=== PATIENT | female | born 1965 | race Caucasian/White ===

== ENCOUNTER 2020-05-13 15:13 | Inpatient (IN) | payer MEDICAID, SELFPAY ==
[2020-05-13] VITALS (7 sets, daily range): BP systolic 98–196; BP diastolic 46–110; PULSE 50–60; RESP 14–18; TEMP 36.6–37; O2SAT 96–97; BMI 28.3; BMI 24.5
--- NOTE | 2020-05-13 15:46 | ECG_ITS ---
Test Reason : CHEST PAIN Blood Pressure : / mmHG Vent. Rate : 052 BPM Atrial Rate : 052 BPM P-R Int : 146 ms QRS Dur : 096 ms QT Int : 456 ms P-R-T Axes : 064 -29 091 degrees QTc Int : 424 ms Sinus bradycardia Left axis deviation T wave abnormality, consider lateral ischemia Abnormal ECG When compared with ECG of 23-MAY-2014 16:37, Vent. rate has decreased BY 38 BPM T wave inversion now evident in Anterior leads Referred By: Jasiel Molina Electronically Signed By:GUNJAN TREJO MD
--- NOTE | 2020-05-13 17:16 | ED_ITS ---
HPI - Chest Pain General Chief Complaint: Chest Pain Stated Complaint: PT FEELS LIKE SHE IS HAVING A HEART ATTACK PER BLS Time Seen by Provider: 05/13/20 17:16 Source: patient Mode of arrival: EMS Limitations: no limitations History of Present Illness HPI narrative: Patient's history of peripheral vascular disease coronary artery disease status post CABG 1 vessel in 2009 on aspirin with recurrent chest pain off and on almost once a month comes here as she had pain on the left side of the chest since 05:00 after she woke up this time the pain was more severe than usual pain in the past patient took 3 nitros at home which is unusual for her with partial relief patient was given baby aspirin by EMS MD complaint: chest heaviness Pertinent past history: coronary artery disease and prior OK Onset (ago): hour(s) (12) Timing of current episode: constant Prior episodes: Yes Onset: during rest Pain location: left chest Pain radiation: right arm Severity: moderate Quality: tightness Relieving factors: nitroglycerin Exacerbating factors: nothing Treatment prior to arrival: aspirin and nitroglycerin Related Data Home Medications Medication Instructions Recorded Confirmed aripiprazole [Abilify] 10 mg PO DAILY 05/13/20 05/13/20 aspirin 81 mg PO DAILY 05/13/20 05/13/20 atorvastatin [Lipitor] 40 mg PO DAILY 05/13/20 05/13/20 cyclobenzaprine 10 mg PO TID PRN 05/13/20 05/13/20 docusate sodium 100 mg PO DAILY 05/13/20 05/13/20 hydrochlorothiazide 25 mg PO DAILY 05/13/20 05/13/20 lisinopril 40 mg PO DAILY 05/13/20 05/13/20 metformin 1,000 mg PO DAILY 05/13/20 05/13/20 metoprolol tartrate 100 mg PO DAILY 05/13/20 05/13/20 nitroglycerin 0.4 mg SUBLINGUAL Q5M PRN 05/13/20 05/13/20 oxycodone 5 mg PO Q6H PRN 05/13/20 05/13/20 zolpidem 10 mg PO BEDTIME PRN 05/13/20 05/13/20 Allergies Allergy/AdvReac Type Severity Reaction Status Date / Time ibuprofen [From Motrin] Allergy Stomach Verified 05/13/20 19:18 Upset Review of Systems Review of Systems: REVIEW OF SYSTEMS: Pertinent positives and negatives are stated above in the history. GEN: no fevers, chills, fatigue HEENT: no nasal congestion, sore throat, ear pain NEURO: no headache, dizziness, focal weakness PULM: no cough, shortness of breath CV: no palpitations, LE edema ABD: no abdominal pain, nausea, vomiting, diarrhea : no dysuria, urgency, frequency SKIN: no rash ROS otherwise negative x 10 PMFSH Past Medical History Medical History Diabetes Herniated cervical disc HTN (hypertension) Myocardial infarct Surgical History Hx of BKA S/P CABG x 1 Social History Social History Smoked in Last 30 Days: No Use of substances other than those prescribed or required for medical reasons: No Advance Directives: No Advance Directives Information Provided: No Physical Exam Vital Signs: Vital Signs: Last Vital Signs Temp 98.6 F 05/13/20 19:19 Pulse 52 05/13/20 19:27 Resp 52 H 05/13/20 20:25 BP 105/46 L 05/13/20 20:25 Pulse Ox 96 05/13/20 19:27 Body Mass Index 28.3 VITAL SIGNS: Reviewed. GENERAL: Well developed, well nourished, in no acute distress. HEAD: Normocephalic/atraumatic, EYES: PERRLA No pallor/icterus noted NOSE: Nares patent bilateral OROPHARYNX: Oral mucosa moist no oral lesions NECK: Supple, no adenopathy LUNGS: Normal breath sounds. No adventitious sounds or accessory muscle use CARDIOVASCULAR: Regular rate and rhythm without noted murmurs, no JVD or lower extremity edema. ABDOMEN: Soft, non-tender, non-distended with bowel sounds. No rigidity. No guarding. No palpable masses or hernias noted MUSCULOSKELETAL: No tenderness, deformities, EXTREMITIES: No cyanosis or edema left BKA. SKIN: no rashes, ulcerations, jaundice, pallor, or petechiae NEUROLOGIC: Alert and oriented x 3. Strength and sensation to light touch were grossly intact Course Course Course Narrative: patient with chest pain responded to 3 nitros with history of coronary artery disease status post CABG patient initial troponin was 73 repeat troponin is 1265 now denied any chest pain at this time repeat EKG still showing inferolateral ischemic changes patient denies any chest pain will admit patient started on heparin drip and nitro paste applied MDM - Chest Pain Lab Data Result diagrams: 05/13/20 18:07 05/13/20 18:07 Labs: Lab Results 05/13/20 05/13/20 05/13/20 Range/Units 18:06 18:07 18:07 WBC 13.1 H (4.8-10.8) X10*3/uL RBC 4.80 (4.20-5.50) X10*6/uL Hgb 14.6 (12.0-16.0) g/dl Hct 44.2 (37-47) % MCV 92.1 (80-98) fL MCH 30.4 (27.0-33.0) pg MCHC 33.0 (31.0-35.0) g/dl RDW 11.7 (11.0-16.0) % Plt Count 296 (160-400) X10*3/uL MPV 9.7 (9.4-12.3) fL Immature Gran % (Auto) 0.5 H (0.0-0.4) % Neut % (Auto) 81.7 H (45-73) % Lymph % (Auto) 13.5 L (20-40) % Bradley % (Auto) 3.4 (2-11) % Eos % (Auto) 0.5 (0-4) % Baso % (Auto) 0.4 (0-2) % Lymph # (Auto) 1.8 (1.2-4.9) X10*3/uL Bradley # (Auto) 0.5 (0.1-1.2) X10*3/uL Eos # (Auto) 0.1 (0.0-0.4) X10*3/uL Baso # (Auto) 0.1 (0.0-0.2) X10*3/uL Abs Immat Gran (auto) 0.06 H (0.00-0.03) X10*3/uL Absolute Neuts (auto) 10.7 H (2.0-8.3) X10*3/uL Absolute Nucleated RBC 0.000 (0.0-0.012) X10*3/uL Nucleated RBC % (auto) 0.0 (0.0-0.2) /100WBC PT 11.8 (10.8-13.0) SEC INR 1.0 (0.9-1.1) APTT 30.8 (24.1-38.0) SEC Sodium 141 (135-145) mmol/L Potassium 4.3 (3.3-5.1) mmol/l Chloride 104 (96-108) mmol/L Carbon Dioxide 29 (22-29) mmol/L Anion Gap 12 (12-20) BUN 19 H (9-16) mg/dL Creatinine 0.98 (0.5-1.4) mg/dL Estim Creat Clear Calc 64.3 Estimated GFR 59 Random Glucose 141 H (60-115) mg/dL Calcium 8.4 (8.4-10.2) mg/dL Troponin I High Sens (<3.5-17.0) ng/L B-Natriuretic Peptide (<100) pg/mL 05/13/20 05/13/20 Range/Units 18:07 20:26 WBC (4.8-10.8) X10*3/uL RBC (4.20-5.50) X10*6/uL Hgb (12.0-16.0) g/dl Hct (37-47) % MCV (80-98) fL MCH (27.0-33.0) pg MCHC (31.0-35.0) g/dl RDW (11.0-16.0) % Plt Count (160-400) X10*3/uL MPV (9.4-12.3) fL Immature Gran % (Auto) (0.0-0.4) % Neut % (Auto) (45-73) % Lymph % (Auto) (20-40) % Bradley % (Auto) (2-11) % Eos % (Auto) (0-4) % Baso % (Auto) (0-2) % Lymph # (Auto) (1.2-4.9) X10*3/uL Bradley # (Auto) (0.1-1.2) X10*3/uL Eos # (Auto) (0.0-0.4) X10*3/uL Baso # (Auto) (0.0-0.2) X10*3/uL Abs Immat Gran (auto) (0.00-0.03) X10*3/uL Absolute Neuts (auto) (2.0-8.3) X10*3/uL Absolute Nucleated RBC (0.0-0.012) X10*3/uL Nucleated RBC % (auto) (0.0-0.2) /100WBC PT (10.8-13.0) SEC INR (0.9-1.1) APTT (24.1-38.0) SEC Sodium (135-145) mmol/L Potassium (3.3-5.1) mmol/l Chloride (96-108) mmol/L Carbon Dioxide (22-29) mmol/L Anion Gap (12-20) BUN (9-16) mg/dL Creatinine (0.5-1.4) mg/dL Estim Creat Clear Calc Estimated GFR Random Glucose (60-115) mg/dL Calcium (8.4-10.2) mg/dL Troponin I High Sens 73.6 H 1265.1 H D (<3.5-17.0) ng/L B-Natriuretic Peptide 79 (<100) pg/mL ECG Data ECG #1: Attestation: I personally reviewed and interpreted this ECG as follows: ECG interpretation date: 05/13/20 Prior ECG tracings: available for review Interpretation: sinus bradycardia ventricular rate 52 beats per minute left axis deviation nonspecific ST T wave changes no ST elevation impression nonspecific inferolateral ischemic changes ECG #2: Attestation: I personally reviewed and interpreted this ECG as follows: ECG interpretation date: 05/13/20 ECG interpretation time: 21:39 Prior ECG tracings: available for review Interpretation: heart rate [address] T wave changes suggestive of inferolateral ischemia no significant change from the previous EKG except for the T wave is inverted in V4 V5 now Discharge Plan Discharge Prescriptions: No Action cyclobenzaprine 10 mg Tablet 10 mg PO TID PRN (Reason: Pain) RF: 0 atorvastatin [Lipitor] 40 mg Tablet 40 mg PO DAILY RF: 0 metformin 500 mg Tablet 1,000 mg PO DAILY RF: 0 metoprolol tartrate 100 mg Tablet 100 mg PO DAILY RF: 0 nitroglycerin 0.4 mg Tablet, Sublingual 0.4 mg SUBLINGUAL Q5M PRN (Reason: Angina) RF: 0 docusate sodium 100 mg Capsule 100 mg PO DAILY RF: 0 aspirin 81 mg Tablet 81 mg PO DAILY RF: 0 hydrochlorothiazide 25 mg Tablet 25 mg PO DAILY RF: 0 zolpidem 10 mg Tablet 10 mg PO BEDTIME PRN (Reason: Insomnia) RF: 0 lisinopril 40 mg Tablet 40 mg PO DAILY RF: 0 oxycodone 5 mg Tablet 5 mg PO Q6H PRN (Reason: Pain) RF: 0 aripiprazole [Abilify] 10 mg Tablet 10 mg PO DAILY RF: 0
--- NOTE | 2020-05-13 17:32 | XR_ITS ---
EXAMINATION: XR CHEST CLINICAL INFORMATION: Chest pain COMPARISON: 09/22/2016 TECHNIQUE: Frontal view of the chest was obtained. FINDINGS: Median sternotomy wires are intact. Cardiac silhouette is normal. Adequate expansion of the lungs. No focal consolidation. No pleural effusion or pneumothorax. No acute osseous abnormality. XR/XR chest 1V IMPRESSION: No acute disease within the chest.
--- NOTE | 2020-05-13 17:46 | PC.NURSE ---
ROOM WITH MONITOR OBTAINED. PT TO CXR AT THIS TIME.
--- NOTE | 2020-05-13 17:55 | PC.NURSE ---
pt just returned from [place]. requesting to use [facility]. pt set up on [facility]. able to self transfer to [facility] [facility].
[2020-05-13] MEDS: Nitroglycerin 2 % Oint 1 GM Packet 1 INCH TRANSDERMA (18:11)
[2020-05-13 18:13] LABS: MANUAL DIFF FLAG NO
[2020-05-13 18:16] LABS: Basophils Absolute Auto 0.1 X10*3/uL (0.0-0.2); Basophils Percent Auto 0.4 % (0-2); Eosinophils Absolute Auto 0.1 X10*3/uL (0.0-0.4); Eosinophils Percent Auto 0.5 % (0-4); Hematocrit 44.2 % (37-47); Hemoglobin 14.6 g/dl (12.0-16.0); Imm Gran Abs Auto 0.06 X10*3/uL (0.00-0.03); Imm Gran Pct Auto 0.5 % (0.0-0.4); Lymphocytes Absolute Auto 1.8 X10*3/uL (1.2-4.9); Lymphocytes Percent Auto 13.5 % (20-40); Mean Corpuscular Hemoglobin 30.4 pg (27.0-33.0); Mean Corpuscular Volume 92.1 fL (80-98); Mean Platelet Volume 9.7 fL (9.4-12.3); Monocytes Absolute Auto 0.5 X10*3/uL (0.1-1.2); Monocytes Percent Auto 3.4 % (2-11); Neutrophils Absolute Auto 10.7 X10*3/uL (2.0-8.3); Neutrophils Percent Auto 81.7 % (45-73); Platelet Count 296 X10*3/uL (160-400); Red Cell Distribution Width 11.7 % (11.0-16.0); White Blood Count 13.1 X10*3/uL (4.8-10.8)
[2020-05-13 18:22] LABS: Prothrombin Time 11.8 SEC (10.8-13.0)
[2020-05-13 18:25] LABS: Partial Thromboplastin Time 30.8 SEC (24.1-38.0)
[2020-05-13 18:38] LABS: Anion Gap 12 (12-20); Blood Urea Nitrogen 19 mg/dL (9-16); Calcium 8.4 mg/dL (8.4-10.2); Carbon Dioxide 29 mmol/L (22-29); Chloride 104 mmol/L (96-108); Creatinine Clr Calc Pharmacy 64.3; Estimated Glomerular Filt Rate 59; Glucose Random 141 mg/dL (60-115); Potassium 4.3 mmol/l (3.3-5.1); Sodium 141 mmol/L (135-145)
[2020-05-13 18:48] LABS: Troponin-I High Sensitivity 73.6 ng/L (<3.5-17.0)
[2020-05-13] MEDS: ondansetron HCL 4 MG/2 ML VIAL IVPUSH (19:19)
[2020-05-13] MEDS: Morphine Sulfate 4 MG/ML CARTRIDGE IVPUSH (19:19)
[2020-05-13] MEDS: oxyCODONE HCl Immed Release 5 MG TABLET 10 MG PO (20:49)
[2020-05-13 20:56] LABS: B Type Natriuretic Peptide 79 pg/mL (<100)
[2020-05-13 21:26] LABS: Troponin-I High Sensitivity 1265.1 ng/L (<3.5-17.0)
[2020-05-13] MEDS: Heparin Sodium,Porcine/1/2NS 25,000 UNIT/250 ML IV.SOLN 7.8 UNIT IVCONT (22:16)
[2020-05-13] MEDS: Heparin Sodium,Porcine 5,000 UNIT/ML VIAL 3900 UNIT IVPUSH (22:17)
[2020-05-13 22:31] LABS: Glucose, Whole Blood 152 mg/dL (60-115)
--- NOTE | 2020-05-13 23:23 | PM.IMHP ---
History of Present Illness Date of Service: 05/13/20 Chief Complaint: chest pain 54 y/o female who presented from home c/o chest pain. Patient has a significant hx of CAD s/p CABG in 2009, PAD and a stroke in 2017. Reports that has been having on and of chest pain for almost a month now, not every day, not related to exertion, today reports that symptoms are worse not improving with nitro therapy. On presentation to the ED pateint was hypertensive which improved without treatment to 141/52 mmHg, HR of 51. WBC of 13.1, troponin of 73.6 which worsen to 1265. CXR showed no acute abnormality. EKG showing sinus bradycardia, with T wave inversion on anterior leads. Cardiology consulted per ed who recommended aspirin, plavix and full dose anticoagulation with Heparin. Decision for admission given. Patient was seen and evaluated at the bedside, laying down in bed in no acute ditress. ROS as above otherwise negative. Physical exam positive for LLE amputation, Rigth flank mild tenderness on percussion. Otherwise rest of the exam unremarkable. PMHX: HTN, HLP, DM, CAD s/p [place] and CABG in 2009, Asthma, OA, Depression, Stroke in 2017 PSx: CABG, LLE amputation Toxic habits: Smoker, Social alcohol drinker, Marijuana use Review of Systems Constitutional: Constitutional: Reports as per HPI Cardiovascular: Cardiovascular: Reports chest pain at rest Musculoskeletal: Musculoskeletal: Reports other (right flank pain ) [facility] Medical History Diabetes Herniated cervical disc HTN (hypertension) Myocardial infarct Functional capacity: independent ambulation Surgical History Hx of BKA S/P CABG x 1 Social History Smoked in Last 30 Days: No Use of substances other than those prescribed or required for medical reasons: No Advance Directives: No Advance Directives Information Provided: No Meds Allergies Allergy/AdvReac Type Severity Reaction Status Date / Time ibuprofen [From Motrin] Allergy Stomach Verified 05/13/20 19:18 Upset Home Medications Medication Instructions Recorded Confirmed Type aripiprazole [Abilify] 10 mg PO DAILY 05/13/20 05/13/20 History aspirin 81 mg PO DAILY 05/13/20 05/13/20 History atorvastatin [Lipitor] 40 mg PO DAILY 05/13/20 05/13/20 History cyclobenzaprine 10 mg PO TID PRN 05/13/20 05/13/20 History docusate sodium 100 mg PO DAILY 05/13/20 05/13/20 History hydrochlorothiazide 25 mg PO DAILY 05/13/20 05/13/20 History lisinopril 40 mg PO DAILY 05/13/20 05/13/20 History metformin 1,000 mg PO DAILY 05/13/20 05/13/20 History metoprolol tartrate 100 mg PO DAILY 05/13/20 05/13/20 History nitroglycerin 0.4 mg SUBLINGUAL Q5M PRN 05/13/20 05/13/20 History oxycodone 5 mg PO Q6H PRN 05/13/20 05/13/20 History zolpidem 10 mg PO BEDTIME PRN 05/13/20 05/13/20 History Physical Exam Vital Signs and Narrative: Vital Signs: Last Vital Signs Temp 98.2 F 05/13/20 22:00 Pulse 51 05/13/20 22:00 Resp 15 05/13/20 22:00 BP 141/52 H 05/13/20 22:00 Pulse Ox 96 05/13/20 22:00 Body Mass Index 24.5 Const: General: cooperative and comfortable Orientation/consciousness: patient oriented x3 HENMT: Head: Yes normal to inspection Eyes: General: appearance normal, both eyes and all related structures Neck: Yes normal visual inspection Chest: Chest palpation & inspection: normal inspection of the chest Resp: Effort & Inspection: normal respiratory effort Cardio: Jugular venous distension: no JVD Rate: regular rate Rhythm: regular rhythm Heart sounds: S1 normal heart sound present and S2 normal heart sound present GI: Inspection: Yes normal to inspection Back/Spine/Pelvis: Thoracic/Lumbar Spine: other (right flank mild tenderness ) Skin: General skin exam: no rashes or lesions noted Neuro: General: patient oriented x3 Extrem: General: Yes normal to inspection Psych: Appearance: grossly normal Results Labs Labs: Laboratory Tests 05/13/20 05/13/20 05/13/20 18:06 18:07 18:07 WBC 13.1 H RBC 4.80 Hgb 14.6 Hct 44.2 MCV 92.1 MCH 30.4 MCHC 33.0 RDW 11.7 Plt Count 296 MPV 9.7 Immature Gran % (Auto) 0.5 H Neut % (Auto) 81.7 H Lymph % (Auto) 13.5 L Braxton % (Auto) 3.4 Eos % (Auto) 0.5 Baso % (Auto) 0.4 Lymph # (Auto) 1.8 Braxton # (Auto) 0.5 Eos # (Auto) 0.1 Baso # (Auto) 0.1 Abs Immat Gran (auto) 0.06 H Absolute Neuts (auto) 10.7 H Absolute Nucleated RBC 0.000 Nucleated RBC % (auto) 0.0 PT 11.8 INR 1.0 APTT 30.8 Sodium 141 Potassium 4.3 Chloride 104 Carbon Dioxide 29 Anion Gap 12 BUN 19 H Creatinine 0.98 Estim Creat Clear Calc 64.3 Estimated GFR 59 POC Glucose Random Glucose 141 H Calcium 8.4 Troponin I High Sens B-Natriuretic Peptide 05/13/20 05/13/20 05/13/20 18:07 20:26 22:27 WBC RBC Hgb Hct MCV MCH MCHC RDW Plt Count MPV Immature Gran % (Auto) Neut % (Auto) Lymph % (Auto) Braxton % (Auto) Eos % (Auto) Baso % (Auto) Lymph # (Auto) Braxton # (Auto) Eos # (Auto) Baso # (Auto) Abs Immat Gran (auto) Absolute Neuts (auto) Absolute Nucleated RBC Nucleated RBC % (auto) PT INR APTT Sodium Potassium Chloride Carbon Dioxide Anion Gap BUN Creatinine Estim Creat Clear Calc Estimated GFR POC Glucose 152 H Random Glucose Calcium Troponin I High Sens 73.6 H 1265.1 H D B-Natriuretic Peptide 79 Imaging Radiologist's Impressions: Impressions Chest X-Ray 05/13/20 17:32 IMPRESSION: No acute disease within the chest. Assessment and Plan (1) NSTEMI (non-ST elevated myocardial infarction): Status: Acute s/p ASA, Plavix and started on Heparin drip per ED Continue with aspirin home dose continue with plavix as ordered continue with Heparin drip as per protocol monitor H and H closely Chest pain free at present repeat EKG in 6 hrs from now trend troponin follow up 2d echo in the am follow up UA and Follow up US abdomen continue with nitroglycerin home dose Cardiology consult in the am (2) Hyperlipidemia: Status: Acute continue with statin home dose (3) HTN (hypertension): Status: Acute continue with HCTZ home dose continue with lisinopril home dose continue with metoprolol home dose (4) Diabetes: Status: Acute Insulin regimen as ordered (5) Depression: Status: Acute continue with aripiprazole home dose
[2020-05-13 23:39] LABS: SARS COV2 PCR INHOUSE NEGATIVE (Negative)
--- NOTE | 2020-05-14 | US_ITS ---
EXAMINATION: ABDOMINAL ULTRASOUND COMPLETE CLINICAL INFORMATION: Renal colic. Right-sided pain. COMPARISON: None. TECHNIQUE: Real-time imaging of the abdominal viscera. FINDINGS: PANCREAS: The visualized pancreatic head and body are normal in appearance. The pancreatic duct measures 2 mm. The remainder of the pancreas is obscured from visualization by the overlying bowel gas. ABDOMINAL AORTA: The proximal, middle, and distal aortic segments are normal in caliber. INFERIOR VENA CAVA: Visualized portions are normal. LIVER: Normal. The liver demonstrates normal size, contour and echogenicity. No focal lesion or intrahepatic biliary duct dilatation. GALLBLADDER: There are calculi within the gallbladder lumen. There is no wall thickening or pericholecystic fluid. COMMON BILE DUCT: Normal in caliber measuring 0.5 cm in diameter. RIGHT KIDNEY: Normal. No hydronephrosis. No renal calculi or focal parenchymal lesions. The kidney measures 10.1 cm in maximum dimension. LEFT KIDNEY: Normal. No hydronephrosis. No renal calculi or focal parenchymal lesions. The kidney measures 11.6 cm in maximum dimension. SPLEEN: Normal. The spleen measures 7.5 cm in maximum dimension. FREE FLUID: None. US/US abdomen complete IMPRESSION: Cholelithiasis without evidence of cholecystitis.
--- NOTE | 2020-05-14 | ECG_ITS ---
Test Reason : CHEST PAIN Blood Pressure : / mmHG Vent. Rate : 047 BPM Atrial Rate : 047 BPM P-R Int : 144 ms QRS Dur : 096 ms QT Int : 462 ms P-R-T Axes : 065 -45 085 degrees QTc Int : 408 ms Sinus bradycardia Left axis deviation Nonspecific T wave abnormality Abnormal ECG When compared with ECG of 13-MAY-2020 21:32, No significant change was found Referred By: Jasiel Molina Electronically Signed By:GUNJAN TREJO MD
[2020-05-14 02:05] VITALS: BP 152/70; PULSE 54; RESP 18; TEMP 37.1; O2SAT 94
[2020-05-14] MEDS: 0.9 % Sodium Chloride Flush 3 ML SYRINGE IVFLUSH ×2 (02:27→09:01)
[2020-05-14] MEDS: Clopidogrel Bisulfate 75 MG TABLET PO (02:31)
[2020-05-14 02:40] VITALS: BMI 24.6
[2020-05-14 03:16] VITALS: BP 142/63; PULSE 53; RESP 18; TEMP 37.1; O2SAT 93
[2020-05-14] MEDS: Morphine Sulfate 2 MG/ML CARTRIDGE 1 MG IVPUSH (03:33)
[2020-05-14] MEDS: Throat Lozenge, Medicated LOZENGE 1 LOZENGE MUCOUS MEM (03:34)
[2020-05-14] MEDS: guaiFENesin 100 MG/5 ML LIQUID PO (03:34)
[2020-05-14 04:40] LABS: MANUAL DIFF FLAG NO
[2020-05-14 04:50] LABS: Basophils Absolute Auto 0.1 X10*3/uL (0.0-0.2); Basophils Percent Auto 0.5 % (0-2); Eosinophils Absolute Auto 0.1 X10*3/uL (0.0-0.4); Eosinophils Percent Auto 1.1 % (0-4); Hematocrit 40.5 % (37-47); Hemoglobin 13.4 g/dl (12.0-16.0); Imm Gran Abs Auto 0.03 X10*3/uL (0.00-0.03); Imm Gran Pct Auto 0.3 % (0.0-0.4); Lymphocytes Absolute Auto 2.8 X10*3/uL (1.2-4.9); Mean Corpuscular HGB Conc 33.1 g/dl (31.0-35.0); Mean Corpuscular Hemoglobin 30.8 pg (27.0-33.0); Mean Corpuscular Volume 93.1 fL (80-98); Mean Platelet Volume 10.1 fL (9.4-12.3); Monocytes Absolute Auto 0.4 X10*3/uL (0.1-1.2); Monocytes Percent Auto 4.3 % (2-11); Neutrophils Absolute Auto 6.3 X10*3/uL (2.0-8.3); Neutrophils Percent Auto 64.8 % (45-73); Platelet Count 252 X10*3/uL (160-400); Red Blood Count 4.35 X10*6/uL (4.20-5.50); Red Cell Distribution Width 11.8 % (11.0-16.0); White Blood Count 9.7 X10*3/uL (4.8-10.8)
[2020-05-14 05:10] LABS: PTT Heparin Drip 56.9 SEC (53-77.9)
[2020-05-14 05:16] LABS: Anion Gap 14 (12-20); Blood Urea Nitrogen 16 mg/dL (9-16); Calcium 7.9 mg/dL (8.4-10.2); Carbon Dioxide 23 mmol/L (22-29); Chloride 105 mmol/L (96-108); Creatinine Clr Calc Pharmacy 83.1; Estimated Glomerular Filt Rate > 60; Glucose Random 136 mg/dL (60-115); Potassium 3.9 mmol/l (3.3-5.1); Sodium 138 mmol/L (135-145)
[2020-05-14 07:32] LABS: Glucose, Whole Blood 103 mg/dL (60-115)
[2020-05-14 07:35] VITALS: BP 151/67; PULSE 56; RESP 19; TEMP 36.9; O2SAT 95
[2020-05-14] MEDS: Cyclobenzaprine HCl 10 MG TABLET PO ×2 (09:00→13:31)
[2020-05-14 09:01] VITALS: BP 151/67; PULSE 65
[2020-05-14] MEDS: hydroCHLOROthiazide 25 MG TABLET PO (09:01)
[2020-05-14] MEDS: Aspirin 81 MG TAB.CHEW PO (09:01)
[2020-05-14] MEDS: Docusate Sodium 100 MG CAPSULE PO (09:01)
[2020-05-14] MEDS: ARIPiprazole 10 MG TABLET PO (09:01)
[2020-05-14] MEDS: Atorvastatin Calcium 40 MG TABLET PO (09:01)
[2020-05-14] MEDS: lisinopriL 40 MG TABLET PO (09:01)
[2020-05-14 09:03] VITALS: PULSE 50
--- NOTE | 2020-05-14 10:20 | CA_ITS ---
Transthoracic Echocardiogram Patient (Last, First, Middle): Zoya Nguyen, Gender: Female Date of : 1965 Age: 54 Procedure Date: 05/14/2020 Procedure Type: Transthoracic Echocardiogram Location: [facility] – [place] Height: 162.56 cm Weight: 64.86 kg BSA: 1.70 m2 Heart Rate: bpm BP: 142 / 63 mmHg Cooler Operator: DSRichardson Referring MD: Meron Lawrence MD Symptoms: NSTEMI Conclusions: - The left ventricular systolic function is hyperdynamic. The visually estimated ejection fraction is >70%. - The basal inferior segment is akinetic. - Normal right ventricular cavity size and systolic function. - No significant valvular or pericardial pathology. Findings Left Ventricle Normal left ventricular cavity size. There is mildly increased left ventricular wall thickness. The left ventricular systolic function is hyperdynamic. The visually estimated ejection fraction is >70%. There is evidence of regional wall motion abnormalities. Diastolic function is normal for age. Wall Motion Rest Echo Findings The basal inferior segment is akinetic. Right Ventricle Normal right ventricular cavity size and systolic function. Atria Both atria are normal in size. There is no evidence of interatrial shunt by color Doppler. Aortic Valve There is mild thickening of the aortic valve. There is no aortic valve stenosis. There is no aortic valve regurgitation. Mitral Valve Normal mitral valve structure and function. There is no mitral valve regurgitation. There is no mitral valve stenosis. Pulmonic Valve The pulmonic valve is likely normal. Tricuspid Valve Normal tricuspid valve structure and function. There is no tricuspid valve regurgitation. Tricuspid regurgitation envelope is inadequate for calculation of right ventricular systolic pressure. Normal right atrial pressure. Great Vessels All visible segments of the aorta are normal in size. The visualized portions of the pulmonary artery and branches are normal. Venous The inferior vena cava is normal in size and collapses greater than 50% with inspiration. Pericardium/Pleural There is no evidence of pericardial effusion. Prior Study Comparison Changes noted compared to prior study dated: 12/15/2001. Basal inferior wall is akinetic (compared with november 2016 echo at [facility]). Measurements 2D Linear Measurements IVSd: 0.97 0.6-0.9/0.6-1.0 cm LVIDd: 4.64 3.9-5.3/4.2-5.9 cm LVIDd Index: 2.73 2.4-3.2/2.2-3.1 cm/m2 LVIDs: 3.32 2.0-3.6 cm LVPWd: 0.99 0.7-1.1 cm Ao Root: 2.80 2.1-3.5 cm LA Diam: 3.00 2.7-3.8/3.0-4.0 cm LAIDs Index: 1.76 1.5-2.3 cm/m2 LV Mass: 194.70 67-162/88-224 g LV Mass Index: 114.53 43-95/49-115 g/m2 LVOT Diam: 1.90 3.0+(-)1.3 cm 2D Systolic Function EF 4C: 69.20 >55% Mitral Valve MV Pk E: 1.01 MV PK A: 0.81 MV Decel Time: 195.00 E/A: 1.30 E'Lateral: 9.38 E'Medial: 8.99 E/E' Med: 11.20 E/E' Lat: 10.80 PHT: 57.00 MVA PHT: 3.86 Decel [place]: 5.19 Aortic Valve AoV Pk Obed: 1.44 AoV Pk Grad: 8.00 LVOT LVOT Pk Obed: 1.39 LVOT Mn Obed: 0.85 LVOT VTI: 0.31 LVOT Pk Grad: 8.00 LVOT Mn Grad: 3.00 LVOT Diam: 1.90 LVOT Area: 2.84 Diastolic Function MV Pk E: 1.01 MV Pk A: 0.81 E/A: 1.30 E'Medial: 8.99 E/E' Med: 11.20 E' Laterial: 9.38 E/E' Lat: 10.80 Tricuspid Valve RA Press: 3.00 Great Vessels Aorta Ao Root-2D: 2.80 2.0-3.7 cm Updated in Other Vendor System with Status of Final Amrit Still MD electronically signed on 05/14/2020 12:33:49 PM with status of Final
--- NOTE | 2020-05-14 10:24 | MHC.CM.PN ---
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
[2020-05-14 10:50] LABS: PTT Heparin Drip 61.8 SEC (53-77.9)
[2020-05-14 11:20] VITALS: PULSE 57; RESP 18; TEMP 36.3; O2SAT 93
--- NOTE | 2020-05-14 11:24 | PM.CNCAR ---
History of Present Illness History of Present Illness Date of Consult: May 14, 2020 Requesting physician: Tyler Holloway Chief complaint: NSTEMI Narrative: 54-year-old female who is known to Dr. Minesh Matta. she has history of coronary artery disease with single-vessel bypass surgery with PERRY to LAD in 2009. She had cardiac catheterization for NSTEMI and ongoing chest discomfort 2016 when she had severe stenosis of the mid right coronary artery which was treated with PCI. She is now presenting with chest discomfort that happened yesterday for approximately 2 hours at rest. She ruled in for NSTEMI after that. Her blood pressure was elevated but improved after nitroglycerin. She was started on heparin drip and loaded with Plavix. She currently is pain-free. She is denying any drug abuse. She also has significant peripheral vascular disease and previous left below knee amputation. She also has Right femoral to tibial bypass. Last cardiac catheterization in 2016 showed mid LAD occlusion with the patent PERRY to LAD, chronic total occlusion of ramus intermedius, chronic occlusion of mid left circumflex artery, severe mid RCA stenosis with thrombus which was treated with resolute 3.5 x 22 drug-eluting stent. Review of Systems Review of Systems: Asymptomatic right now. She had chest heaviness and pressure yesterday 2 hours Yes all other systems are reviewed and are negative PMFSH Past Medical History Medical History Diabetes Herniated cervical disc HTN (hypertension) Myocardial infarct Functional capacity: independent ambulation Surgical History Surgical History Hx of BKA S/P CABG x 1 Social History Social History Household Members: None Housing: Apartment Do you presently have visiting nurse or other home services: Yes Smoking Status: Current some day smoker Tobacco Type: Cigarette Packs Per Day: 0.5 Cigarettes Per Day: 10.0 Smoked in Last 30 Days: Yes Patient Interested in Nicotine Replacement: No Use of substances other than those prescribed or required for medical reasons: Yes Substance Use Type: Marijuana Substance Use Frequency: Daily Last Used Substance: Hours (ago) Have you been hit, kicked, punched, or otherwise hurt by someone within the past year? If so, by whom?: No Do you feel safe in your current relationship?: Yes Is there a partner from a previous relationship who is making you feel unsafe now?: No Are you made to feel afraid or neglected: No Advance Directives: No Advance Directives Information Provided: No Do you have thoughts of harming others: None Do you have a plan to hurt others: No Plan Recently lost weight without trying: No service: No Meds Allergies Allergy/AdvReac Type Severity Reaction Status Date / Time ibuprofen [From Motrin] Allergy Stomach Verified 05/13/20 19:18 Upset Home Medications Medication Instructions Recorded Confirmed Type aripiprazole [Abilify] 10 mg PO DAILY 05/13/20 05/13/20 History aspirin 81 mg PO DAILY 05/13/20 05/13/20 History atorvastatin [Lipitor] 40 mg PO DAILY 05/13/20 05/13/20 History cyclobenzaprine 10 mg PO TID PRN 05/13/20 05/13/20 History docusate sodium 100 mg PO DAILY 05/13/20 05/13/20 History hydrochlorothiazide 25 mg PO DAILY 05/13/20 05/13/20 History lisinopril 40 mg PO DAILY 05/13/20 05/13/20 History metformin 1,000 mg PO DAILY 05/13/20 05/13/20 History metoprolol tartrate 100 mg PO DAILY 05/13/20 05/13/20 History nitroglycerin 0.4 mg SUBLINGUAL Q5M PRN 05/13/20 05/13/20 History oxycodone 5 mg PO Q6H PRN 05/13/20 05/13/20 History zolpidem 10 mg PO BEDTIME PRN 05/13/20 05/13/20 History Physical Exam Vital Signs: Vital Signs: Last Vital Signs Temp 97.3 F 05/14/20 11:20 Pulse 57 05/14/20 11:20 Resp 18 05/14/20 11:20 BP 151/67 H 05/14/20 09:01 Pulse Ox 93 05/14/20 11:20 Body Mass Index 24.6 GENERAL APPEARANCE: in no acute distress, well developed, well nourished. HEENT: unremarkable. HEAD: normocephalic, atraumatic. NECK/THYROID: no carotid bruit, no jugular venous distention. SKIN: no suspicious lesions, warm and dry. HEART: no murmurs, regular rate and rhythm, S1, S2 normal. LUNGS: few crackles at bases. ABDOMEN: normal, bowel sounds present, soft, nontender, nondistended. EXTREMITIES: no clubbing, cyanosis, or edema. left BKA. PERIPHERAL PULSES: equal. NEUROLOGIC: nonfocal, alert and oriented. PSYCH: mood/affect full range. Results Labs and Meds Result diagrams: 05/14/20 04:28 05/14/20 04:28 Lab results: Laboratory Results - last 24 hr 05/13/20 05/13/20 05/13/20 18:06 18:07 18:07 WBC 13.1 H RBC 4.80 Hgb 14.6 Hct 44.2 MCV 92.1 MCH 30.4 MCHC 33.0 RDW 11.7 Plt Count 296 MPV 9.7 Immature Gran % (Auto) 0.5 H Neut % (Auto) 81.7 H Lymph % (Auto) 13.5 L [place] % (Auto) 3.4 Eos % (Auto) 0.5 Baso % (Auto) 0.4 Lymph # (Auto) 1.8 [place] # (Auto) 0.5 Eos # (Auto) 0.1 Baso # (Auto) 0.1 Abs Immat Gran (auto) 0.06 H Absolute Neuts (auto) 10.7 H Absolute Nucleated RBC 0.000 Nucleated RBC % (auto) 0.0 PT 11.8 INR 1.0 APTT 30.8 PTT (Heparin Protocol) Sodium 141 Potassium 4.3 Chloride 104 Carbon Dioxide 29 Anion Gap 12 BUN 19 H Creatinine 0.98 Estim Creat Clear Calc 64.3 Estimated GFR 59 POC Glucose Random Glucose 141 H Calcium 8.4 Troponin I High Sens B-Natriuretic Peptide Coronavirus (PCR) 05/13/20 05/13/20 05/13/20 18:07 20:26 21:59 WBC RBC Hgb Hct MCV MCH MCHC RDW Plt Count MPV Immature Gran % (Auto) Neut % (Auto) Lymph % (Auto) [place] % (Auto) Eos % (Auto) Baso % (Auto) Lymph # (Auto) [place] # (Auto) Eos # (Auto) Baso # (Auto) Abs Immat Gran (auto) Absolute Neuts (auto) Absolute Nucleated RBC Nucleated RBC % (auto) PT INR APTT PTT (Heparin Protocol) Sodium Potassium Chloride Carbon Dioxide Anion Gap BUN Creatinine Estim Creat Clear Calc Estimated GFR POC Glucose Random Glucose Calcium Troponin I High Sens 73.6 H 1265.1 H D B-Natriuretic Peptide 79 Coronavirus (PCR) NEGATIVE 05/13/20 05/14/20 05/14/20 22:27 04:28 04:28 WBC 9.7 RBC 4.35 Hgb 13.4 Hct 40.5 MCV 93.1 MCH 30.8 MCHC 33.1 RDW 11.8 Plt Count 252 MPV 10.1 Immature Gran % (Auto) 0.3 Neut % (Auto) 64.8 Lymph % (Auto) 29.0 [place] % (Auto) 4.3 Eos % (Auto) 1.1 Baso % (Auto) 0.5 Lymph # (Auto) 2.8 [place] # (Auto) 0.4 Eos # (Auto) 0.1 Baso # (Auto) 0.1 Abs Immat Gran (auto) 0.03 Absolute Neuts (auto) 6.3 Absolute Nucleated RBC 0.000 Nucleated RBC % (auto) 0.0 PT INR APTT PTT (Heparin Protocol) Sodium 138 Potassium 3.9 Chloride 105 Carbon Dioxide 23 Anion Gap 14 BUN 16 Creatinine 0.66 Estim Creat Clear Calc 83.1 Estimated GFR > 60 POC Glucose 152 H Random Glucose 136 H Calcium 7.9 L Troponin I High Sens B-Natriuretic Peptide Coronavirus (PCR) 05/14/20 05/14/20 05/14/20 04:28 04:28 07:01 WBC RBC Hgb Hct MCV MCH MCHC RDW Plt Count MPV Immature Gran % (Auto) Neut % (Auto) Lymph % (Auto) [place] % (Auto) Eos % (Auto) Baso % (Auto) Lymph # (Auto) [place] # (Auto) Eos # (Auto) Baso # (Auto) Abs Immat Gran (auto) Absolute Neuts (auto) Absolute Nucleated RBC Nucleated RBC % (auto) PT INR APTT PTT (Heparin Protocol) 56.9 Sodium Potassium Chloride Carbon Dioxide Anion Gap BUN Creatinine Estim Creat Clear Calc Estimated GFR POC Glucose 103 Random Glucose Calcium Troponin I High Sens 3919.4 H D B-Natriuretic Peptide Coronavirus (PCR) 05/14/20 10:20 WBC RBC Hgb Hct MCV MCH MCHC RDW Plt Count MPV Immature Gran % (Auto) Neut % (Auto) Lymph % (Auto) [place] % (Auto) Eos % (Auto) Baso % (Auto) Lymph # (Auto) [place] # (Auto) Eos # (Auto) Baso # (Auto) Abs Immat Gran (auto) Absolute Neuts (auto) Absolute Nucleated RBC Nucleated RBC % (auto) PT INR APTT PTT (Heparin Protocol) 61.8 Sodium Potassium Chloride Carbon Dioxide Anion Gap BUN Creatinine Estim Creat Clear Calc Estimated GFR POC Glucose Random Glucose Calcium Troponin I High Sens B-Natriuretic Peptide Coronavirus (PCR) Assessment and Plan (1) NSTEMI (non-ST elevated myocardial infarction): Status: Acute (2) HTN (hypertension): Status: Acute 54-year-old female with background history of coronary artery disease with single-vessel bypass surgery with PERRY to LAD, hypertension, diabetes and PCI to right coronary artery [place] [address] José Luis Tejada. she is here with the elevated blood pressure and chest discomfort for approximately 2 hours yesterday. She ruled in for NSTEMI. She was started on heparin drip and was given a Plavix load. She is doing well since then. She has no active symptoms right now. ECG did not show any significant changes and has nonspecific changes right now. Will check an echocardiogram to assess LV for any wall motion abnormality. I think given her presentation and known significant coronary disease she will need repeat cardiac catheterization. I will transfer her to [facility] for further assessment. In the meantime continue the heparin drip. Continue the aspirin and Plavix 75 mg once a day. Thank you for allowing me to participate in the care of your patient. Please feel free to contact me if you have any questions.
[2020-05-14 11:52] LABS: Glucose, Whole Blood 83 mg/dL (60-115)
--- NOTE | 2020-05-14 12:21 | P.DS_ITS ---
DS: Providers Provider Date of admission: 05/13/20 23:22 Primary care physician: Bianka Alvarado MD Consults: 05/14/20 00:59 Consult to Cardiology Routine Consulting Provider: Amrit Still Reason for consultation: NSTEMI Has provider been notified: Yes DS: Diagnosis Discharge Diagnosis (1) NSTEMI (non-ST elevated myocardial infarction): Status: Acute (2) HTN (hypertension): Status: Acute DS: Summary Hospital Course Hospital Course: HPI from admission H&P: 54 y/o female who presented from home c/o chest pain. Patient has a significant hx of CAD s/p CABG in 2009, PAD and a stroke in 2017. Reports that has been having on and of chest pain for almost a month now, not every day, not related to exertion, today reports that symptoms are worse not improving with nitro the rapy. On presentation to the ED pateint was hypertensive which improved without treatment to 141/52 mmHg, HR of 51. WBC of 13.1, troponin of 73.6 which worsen to 1265. CXR showed no acute abnormality. EKG showing sinus bradycardia, with T wave inversion on anterior leads. Cardiology consulted per ed who recommended aspirin, plavix and full dose anticoagulation with Heparin. Decision for admission given. Patient was seen and evaluated at the bedside, laying down in bed in no acute ditress. ROS as above otherwise negative. Physical exam positive for LLE amputation, Rigth flank mild tenderness on percussion. Otherwise rest of the exam unremarkable. Hospital Course: Patient was started on iv heparin gtt, loaded with plavix 300mg, continue on statin/bb/aspirin. Her CP did resolve, but her HS trop-I was uptrending (73 -> 1265 -> 3919). She was seen by cardiology (Dr. Still) morning after admission who recommended 2d echo to assess for wall motion (formal reading pending) and subsequently recommended transfer to [facility] for cardiac catherization. She was informed of this and agreeable for transfer. Time Spent with Patient Time attestation: Total time spent providing and/or coordinating discharge services: Physical Exam Vital Signs: Vital Signs: Last Vital Signs Temp 97.3 F 05/14/20 11:20 Pulse 57 05/14/20 11:20 Resp 18 05/14/20 11:20 BP 151/67 H 05/14/20 09:01 Pulse Ox 93 05/14/20 11:20 Body Mass Index 24.6 gen - nad cvs - s1s2, mid sternal scar lungs - no distress abd - soft nt neuro - non focal DS: Data Data Completed and Pending Labs on day of discharge: his sodium 138 Potassium 3.9 Chloride 105 Bicarb 23 BUN 16 Creatinine 0.66 WBC 9.7 Hemoglobin 13.4 Hematocrit 40.5 Platelet 252 high sensitivity troponin - 73.6 -> to 1265 -> 3919 Imaging ultrasound: Radiologist's impression: IMPRESSION: Cholelithiasis without evidence of cholecystitis. Chest x-ray: Radiologist's impression: IMPRESSION: No acute disease within the chest. Discharge Plan Discharge Patient Disposition: [facility] Referrals: Bianka Alvarado MD [Primary Care Provider] - Discharge Medications: New clopidogrel 75 mg Tablet 75 mg PO DAILY Qty: 1 RF: 0 insulin lispro [Humalog U-100 Insulin] 100 unit/mL Solution See Protocol unit subcut QIDACHS 1 Days RF: 0 heparin(porcine) in 0.45% NaCl 25,000 unit/250 mL Parenteral Solution 25,000 unit continuous IV infusion .Q0M Qty: 1 RF: 0 Continued cyclobenzaprine 10 mg Tablet 10 mg PO TID PRN (Reason: Pain) RF: 0 atorvastatin [Lipitor] 40 mg Tablet 40 mg PO DAILY RF: 0 metoprolol tartrate 100 mg Tablet 100 mg PO DAILY RF: 0 nitroglycerin 0.4 mg Tablet, Sublingual 0.4 mg SUBLINGUAL Q5M PRN (Reason: Angina) RF: 0 docusate sodium 100 mg Capsule 100 mg PO DAILY RF: 0 aspirin 81 mg Tablet 81 mg PO DAILY RF: 0 hydrochlorothiazide 25 mg Tablet 25 mg PO DAILY RF: 0 zolpidem 10 mg Tablet 10 mg PO BEDTIME PRN (Reason: Insomnia) RF: 0 lisinopril 40 mg Tablet 40 mg PO DAILY RF: 0 oxycodone 5 mg Tablet 5 mg PO Q6H PRN (Reason: Pain) RF: 0 aripiprazole [Abilify] 10 mg Tablet 10 mg PO DAILY RF: 0 Held metformin 500 mg Tablet 1,000 mg PO DAILY RF: 0 Hold Instructions: Resume on 05/21/20. hold pending MD direction at [facility] Discharge Orders: Discharge Order (Routine); Ordered 05/14/20 Ordered By: Tyler Holloway Diet: other Activity on Discharge: bedrest Visit Report Forms: Patient Portal Discharge page Care Plan Goals: Get treatment for heart attack Health Concerns: Heart attack Plan of Treatment: Transfer to [facility] for cardiac cath. continue other medications in the mean time
--- NOTE | 2020-05-14 12:24 | MHC.CM.PN ---
pt being dcd to bs today
[2020-05-14] MEDS: Clopidogrel Bisulfate 300 MG TABLET PO (13:32)
[2020-05-14 14:48] LABS: Glucose, Whole Blood 91 mg/dL (60-115)
== END 2020-05-14 17:00 | disposition short-term general hospital (02) | DRG 190 ==
LOC: HO.ED 22:15 → HO.IMC 05-14 00:05
PROVIDERS: Admitting Provider Internal Medicine; Emergency Provider Internal Medicine; PCP Family Medicine; Visit Provider Family Medicine
DX: I21.4 Non-ST elevation (NSTEMI) myocardial infarction (principal); E11.9 Type 2 diabetes mellitus without complications; Z95.1 Presence of aortocoronary bypass graft; F32.9 Major depressive disorder, single episode, unspecified; I25.10 Atherosclerotic heart disease of native coronary artery without angina pectoris; F17.210 Nicotine dependence, cigarettes, uncomplicated; Z71.6 Tobacco abuse counseling; I10 Essential (primary) hypertension; Z89.512 Acquired absence of left leg below knee; Z20.828 Contact with and (suspected) exposure to other viral communicable diseases; Z88.6 Allergy status to analgesic agent; Z79.4 Long term (current) use of insulin; Z79.02 Long term (current) use of antithrombotics/antiplatelets; Z79.82 Long term (current) use of aspirin; Z79.891 Long term (current) use of opiate analgesic; Z79.899 Other long term (current) drug therapy
CPT/HCPCS: 36415; 71045; 76700; 80048; 82947; 83880; 84484; 85025; 85610; 85730; 93005; 93306; 96374; 96375; 99285; J2270; J2405; U0003

== ENCOUNTER 2022-01-20 10:05 | Outpatient (REF) | payer MEDICAID, SELFPAY ==
--- NOTE | ~2022-01-20 | MM_ITS ---
EXAMINATION: MM SCREENING DIGITAL BREAST TOMOSYNTHESIS, BILATERAL CLINICAL INFORMATION: Screening. Asymptomatic. The lifetime risk of breast cancer based on the Tyrer-Cuzick Model is 5%. COMPARISON: Mammography: 01/21/2018, 12/26/2016, 10/13/2015 TECHNIQUE: Digital breast tomosynthesis is performed in both the craniocaudal and mediolateral oblique views along with computer-aided detection (CAD). Synthesized 2D images are generated from the tomosynthesis. Technically challenging study requiring 2 technologists for positioning. Exam tailored to patient capabilities. FINDINGS: There are scattered areas of fibroglandular density (ACR BI-RADS breast composition Category b). There are no significant masses, abnormal calcifications, or other abnormalities. There are no significant changes from prior outside studies. No developing density. There are bilateral vascular calcifications. The axilla are unremarkable. MM/MM tomosynthesis screening BI IMPRESSION: -No mammographic evidence of malignancy. -Technically challenging exam, 2 technologists used for positioning. ASSESSMENT: BI-RADS 2: Benign RECOMMENDATION: Routine annual mammography screening. This patient's information was entered into a reminder system with a target due date for their next mammogram.
== END 2022-01-20 10:06 | disposition home or self-care (01) ==
LOC: HO.MAMMO 10:05
PROVIDERS: Visit Provider Family Medicine
DX: Z12.31 Encounter for screening mammogram for malignant neoplasm of breast (principal)
CPT/HCPCS: 77063; 77067

== ENCOUNTER 2022-12-25 11:03 | Outpatient (RCR) | payer MEDICAID, SELFPAY | END 2023-02-09 14:10 | disposition home or self-care (01) | LOC: HO.WCC 11:03 | PROVIDERS: PCP Family Medicine; Visit Provider Physician Assistant | DX: E11.622 Type 2 diabetes mellitus with other skin ulcer (principal); E11.51 Type 2 diabetes mellitus with diabetic peripheral angiopathy without gangrene; L97.512 Non-pressure chronic ulcer of other part of right foot with fat layer exposed; T87.89 Other complications of amputation stump; E11.40 Type 2 diabetes mellitus with diabetic neuropathy, unspecified; I10 Essential (primary) hypertension; F17.210 Nicotine dependence, cigarettes, uncomplicated; Z89.421 Acquired absence of other right toe(s); Z86.73 Personal history of transient ischemic attack (TIA), and cerebral infarction without residual deficits; Z79.2 Long term (current) use of antibiotics; Z95.1 Presence of aortocoronary bypass graft; Z95.0 Presence of cardiac pacemaker; Z89.612 Acquired absence of left leg above knee | CPT/HCPCS: 11042; 99213 ==

== ENCOUNTER 2023-03-04 21:50 | Emergency (ER) | payer MEDICAID, SELFPAY ==
--- NOTE | 2023-03-04 | ECG_ITS ---
Test Reason : WEAKNESS Blood Pressure : / mmHG Vent. Rate : 060 BPM Atrial Rate : 060 BPM P-R Int : 164 ms QRS Dur : 092 ms QT Int : 490 ms P-R-T Axes : 043 -15 -64 degrees QTc Int : 490 ms Atrial-paced rhythm T wave abnormality, consider anterior ischemia Prolonged QT Abnormal ECG When compared with ECG of 14-MAY-2020 08:41, Electronic atrial pacemaker has replaced Sinus rhythm Nonspecific T wave abnormality now evident in Inferior leads Inverted T waves have replaced nonspecific T wave abnormality in Anterior leads QT has lengthened Referred By: Generic ED Physician Electronically Signed By:JEROME RIVERA
--- NOTE | ~2023-03-04 | CT_ITS ---
EXAMINATION: CT ABDOMEN AND PELVIS WITHOUT CONTRAST CLINICAL INFORMATION: Left lower quadrant pain 2 weeks after angiogram COMPARISON: 05/18/2006 TECHNIQUE: Multidetector volumetric imaging was performed from the superior aspect of the liver through the pubic symphysis. Sagittal and coronal reformatted images were obtained on the technologist's workstation. This CT examination was performed using dose optimization techniques as appropriate, variously including the following: *Automated exposure control *Adjustment of mA and/or kV according to patient size (this includes techniques or standardized protocols for targeted exams where dose is matched to indication/reason for exam; i.e. extremities or head) *Use of iterative reconstruction technique DLP: 451 mGy-cm FINDINGS: LUNG BASES: The visualized lung bases are unremarkable. Partially visualized pericardial calcification. LIVER, GALLBLADDER, AND BILIARY TREE: The liver is mildly enlarged with homogeneous attenuation. No focal hepatic lesion or biliary ductal dilatation is identified on this noncontrast exam. Cholelithiasis is noted without appreciable gallbladder wall thickening or surrounding inflammation. PANCREAS: Unremarkable. SPLEEN: Unremarkable. ADRENAL GLANDS: There is a thickened appearance of both adrenal glands and could reflect hyperplasia, without focal nodularity. KIDNEYS AND URETERS: No hydronephrosis or obstructing calculus is seen bilaterally. Extensive bilateral hilar calcifications bilaterally, favored to at least partially be vascular. BLADDER: Mildly distended and grossly unremarkable. GASTROINTESTINAL TRACT: No evidence of bowel obstruction or significant wall thickening, though assessment of the colon some regions is limited due to luminal collapse. No free air is seen. ABDOMINAL WALL: No significant hernia is appreciated. LYMPH NODES: No lymphadenopathy is seen, though assessment is limited in the absence of intravenous contrast. VASCULAR: There is extensive vascular calcification. There is a mildly heterogeneous, predominantly mildly hypoattenuating collection in the left retroperitoneum measuring 7.7 x 7.0 cm in the axial plane and extending for approximately 12.6 cm in craniocaudal dimension. There is subtle layering hyperdense material posteriorly. Appearance is suspicious for retroperitoneal hematoma favored to at least partially be subacute, though an acute component cannot be excluded. Medial to the left common femoral vessels there is an additional mildly hypoattenuating 3.9 x 2.7 cm collection suspicious for hematoma. As the vascular structures are not fully assessed in the absence of intravenous contrast, the possibility of femoral artery pseudoaneurysm in this region cannot be excluded. PELVIC VISCERA: There is a coarsely calcified uterine fibroid. OSSEOUS STRUCTURES: Unremarkable. CT/CT abdomen pelvis wo IV con IMPRESSION: 1. Mildly heterogeneous collection in the left retroperitoneum suspicious for hematoma measuring 7.7 x 7.0 x 12.6 cm, favored to at least partially be subacute, though an acute component cannot be excluded. 2. Additional mildly hypoattenuating collection medial to the left common femoral vessels measuring 3.9 x 2.7 cm, also suspicious for hematoma. As the vascular structures are not fully assessed in the absence of intravenous contrast, the possibility of femoral artery pseudoaneurysm in this region cannot be excluded, and this could be further assessed with contrast-enhanced scan or vascular ultrasound. 3. Cholelithiasis. This critical result was discussed with Dr. Montana on 03/05/2023 3:27 AM, and it was ascertained that the content and urgency of the report was understood at the time of direct communication.
--- NOTE | ~2023-03-04 | CT_ITS ---
EXAMINATION: CT ABDOMEN AND PELVIS WITH CONTRAST CLINICAL INFORMATION: Rule out femoral pseudoaneurysm COMPARISON: Noncontrast CT from the same day TECHNIQUE: Multidetector volumetric images were obtained from the superior aspect of the liver through the pubic symphysis following administration 85 mL of Omnipaque 350 intravenous contrast. Sagittal and coronal reformatted images were obtained on the technologist's workstation. Oral contrast: No This CT examination was performed using dose optimization techniques as appropriate, variously including the following: *Automated exposure control *Adjustment of mA and/or kV according to patient size (this includes techniques or standardized protocols for targeted exams where dose is matched to indication/reason for exam; i.e. extremities or head) *Use of iterative reconstruction technique DLP: 480 mGy-cm FINDINGS: LUNG BASES: Calcification noted along the pericardium. LIVER, GALLBLADDER, AND BILIARY TREE: The liver is mildly enlarged with homogeneous attenuation. No focal hepatic lesion or biliary ductal dilatation is present. Cholelithiasis is noted. PANCREAS: Unremarkable. SPLEEN: Unremarkable. ADRENAL GLANDS: Thickened appearance of the adrenal glands is again noted. KIDNEYS AND URETERS: Bilateral nephrograms are symmetric. No hydronephrosis or obstructing calculus identified. Multiple bilateral renal hilar calcifications, at least some of which are favored to be vascular. BLADDER: Mildly distended and grossly unremarkable. GASTROINTESTINAL TRACT: Limited assessment for wall thickening in some segments of the colon due to luminal collapse. No evidence of bowel obstruction. The appendix is unremarkable. No free air is seen. ABDOMINAL WALL: No significant hernia is appreciated. LYMPH NODES: Normal. VASCULAR: There is extensive atherosclerotic plaque and calcification along the aorta, abdominal vessels, and bilateral iliac arteries. There is a right common iliac artery stent. The left common femoral artery in particular is not well assessed due to extensive calcification, and the vessel appears to be at least partially thrombosed distally, along with thrombosis of the visualized proximal left superficial femoral artery. Assessment for pseudoaneurysm is limited in this setting. The proximal right femoral vein appears distended with central hypoattenuation, most suspicious for deep venous thrombosis. Redemonstrated left retroperitoneal mass which is overall mildly hypoattenuating with some internal slightly hyperattenuating components. This measures up to approximately 13 cm in the axial plane and is suspicious for hematoma, unchanged from recent prior. Additional collection medial to the left common femoral vessels is again noted measuring up to approximately 4 cm consistent with additional hematoma. PELVIC VISCERA: Calcified uterine fibroid. OSSEOUS STRUCTURES: Degenerative changes are noted in the spine. CT/CT abdomen pelvis w IV con IMPRESSION: 1. Extensive atherosclerotic disease. The left common femoral artery in particular is not well assessed due to extensive calcification, and the vessel appears to be at least partially thrombosed distally, along with thrombosis of the visualized proximal left superficial femoral artery. Assessment for pseudoaneurysm is limited in this setting. 2. Distention of the proximal right femoral vein with central hypoattenuation, most suspicious for deep venous thrombosis. Evaluation with vascular ultrasound is recommended. 3. Redemonstrated left retroperitoneal collection suspicious for hematoma, unchanged from recent prior. Additional hematoma medial to the left common femoral vessels is also again noted. 4. Cholelithiasis. This critical result was discussed with Dr. Montana on 03/05/2023 5:07 AM, and it was ascertained that the content and urgency of the report was understood at the time of direct communication.
[2023-03-04 21:55] VITALS: BP 126/60; PULSE 72; O2SAT 97
[2023-03-04 22:08] VITALS: BP 99/44; PULSE 60; RESP 18; TEMP 36; O2SAT 98; BMI 21.5
[2023-03-04 22:30] LABS: MANUAL DIFF FLAG NO
[2023-03-04 22:41] LABS: Basophils Absolute Auto 0.1 X10*3/uL (0.0-0.2); Basophils Percent Auto 0.5 % (0-2); Eosinophils Absolute Auto 0.1 X10*3/uL (0.0-0.4); Eosinophils Percent Auto 1.1 % (0-4); Hematocrit 31.7 % (37.0-47.0); Hemoglobin 10.3 g/dl (12.0-16.0); Imm Gran Abs Auto 0.14 X10*3/uL (0.00-0.03); Imm Gran Pct Auto 1.5 % (0.0-0.4); Lymphocytes Absolute Auto 1.5 X10*3/uL (1.2-4.9); Mean Corpuscular HGB Conc 32.5 g/dl (31.0-35.0); Mean Corpuscular Hemoglobin 30.7 pg (27.0-33.0); Mean Corpuscular Volume 94.3 fL (80.0-98.0); Mean Platelet Volume 9.3 fL (9.4-12.3); Monocytes Absolute Auto 0.6 X10*3/uL (0.1-1.2); Neutrophils Absolute Auto 7.3 x10*3/uL (2.0-8.3); Neutrophils Percent Auto 75.9 % (45-73); Platelet Count 325 X10*3/uL (160-400); Red Blood Count 3.36 X10*6/uL (4.20-5.50); Red Cell Distribution Width 13.6 % (11.0-16.0); White Blood Count 9.7 X10*3/uL (4.8-10.8)
[2023-03-04 22:44] LABS: COVID-19 Test Negative (Negative); IDNOW Serial# 6674DD1D
[2023-03-04 22:51] LABS: Alanine Aminotransferase 8 U/L (0-31); Albumin Level 3.4 g/dL (3.5-5.0); Alkaline Phosphatase 70 U/L (39-117); Anion Gap 10 (12-20); Aspartate Amino Transferase 12 U/L (5-31); Bilirubin Total 0.5 mg/dL (0.0-1.0); Blood Urea Nitrogen 18 mg/dL (9-16); Calcium 8.8 mg/dL (8.4-10.2); Carbon Dioxide 28 mmol/L (22-29); Chloride 105 mmol/L (96-108); Creatinine Clr Calc Pharmacy 60.1; Estimated Glomerular Filt Rate > 60; Glucose Random 152 mg/dL (60-115); Lipase 31 U/L (8-78); Potassium 4.3 mmol/L (3.3-5.1); Sodium 139 mmol/L (135-145); Total Protein 6.4 g/dL (6.5-8.0)
[2023-03-04 23:03] LABS: Troponin-I High Sensitivity < 2.7 ng/L (<3.5-17.0)
[2023-03-04 23:34] LABS: Influenza A PCR NEGATIVE (Negative); Influenza B PCR NEGATIVE (Negative); Resp Syncy Virus RNA Qual PCR NEGATIVE (Negative); SARS COV2 PCR INHOUSE NEGATIVE (Negative)
--- NOTE | 2023-03-05 02:29 | ED.ABDPAIN ---
HPI - Abdominal Pain General Chief Complaint: Abdominal Pain Stated Complaint: NAUSEA VOMITING Time Seen by Provider: 03/05/23 02:24 Source: patient Mode of arrival: ambulatory Limitations: no limitations History of Present Illness HPI narrative: Patient comes to the emergency room complaining of left lower quadrant pain that started 2 weeks ago. Patient states that 2 weeks ago she had a left-sided angiogram. Since then, patient has been having pain in that area. Patient complaining of nausea vomiting, no diarrhea, no fever chills, no UTI symptoms. Related Data Home Medications Medication Instructions Recorded Confirmed aripiprazole 10 mg tablet (Abilify) 10 mg PO DAILY 05/13/20 05/13/20 aspirin 81 mg tablet 81 mg PO DAILY 05/13/20 05/13/20 atorvastatin 40 mg tablet (Lipitor) 40 mg PO DAILY 05/13/20 05/13/20 cyclobenzaprine 10 mg tablet 10 mg PO TID PRN Pain 05/13/20 05/13/20 docusate sodium 100 mg capsule 100 mg PO DAILY 05/13/20 05/13/20 hydrochlorothiazide 25 mg tablet 25 mg PO DAILY 05/13/20 05/13/20 lisinopril 40 mg tablet 40 mg PO DAILY 05/13/20 05/13/20 metformin 500 mg tablet 1,000 mg PO DAILY 05/13/20 05/13/20 metoprolol tartrate 100 mg tablet 100 mg PO DAILY 05/13/20 05/13/20 nitroglycerin 0.4 mg sublingual 0.4 mg sublingual Q5M PRN Angina 05/13/20 05/13/20 tablet oxycodone 5 mg tablet 5 mg PO Q6H PRN Pain 05/13/20 05/13/20 zolpidem 10 mg tablet 10 mg PO BEDTIME PRN Insomnia 05/13/20 05/13/20 Previous Rx's Medication Instructions Recorded clopidogrel 75 mg tablet 75 mg PO DAILY #1 tab 05/14/20 heparin (porcine) 25,000 unit/250 25,000 unit (250 mL) continuous IV 05/14/20 mL in 0.45 % sodium chloride IV infusion .Q0M #1 mL soln insulin lispro 100 unit/mL See Protocol subcut QIDACHS 1 day 05/14/20 subcutaneous solution (Humalog U-100 Insulin) Allergies Allergy/AdvReac Type Severity Reaction Status Date / Time ibuprofen [From Motrin] Allergy Stomach Verified 03/04/23 22:07 Upset Review of Systems Review of Systems Constitutional : No Weight loss, No Fever, No Chills, No Night Sweats, No Fatigue, No Malaise ENT/Mouth : No Hearing loss, No Ear Pain, No Nasal Congestion, No Sinus Pain, No Hoarseness, No sore throat, No Rhinorrhea, No Swallowing Difficulty Eyes: No Eye Pain, No Swelling, No Redness, No Foreign Body, No Discharge, No Vision Changes Cardiovascular : No Chest Pain, No SOB, No Dyspnea on Exertion, No Orthopnea, No Edema, No Palpitations Respiratory : No Cough, No Sputum, No Wheezing, No Smoke Exposure, No Dyspnea Gastrointestinal : Complaining of nausea and vomiting, No Diarrhea, No Constipation, complaining of left lower quadrant pain for 2 weeks Genitourinary : no irregular bleeding, No Dysuria, No Urinary Frequency, No Hematuria, No Urinary Incontinence, No Urgency, No Flank Pain, No Urinary Flow Changes, No Hesitancy Musculoskeletal : No joint pain, No Myalgias, No Joint Swelling Skin : No Skin Lesions, No rash Neuro : No Weakness, No Numbness, No Paresthesias, No Loss of Consciousness, No Dizziness, No Headache Psych : No Anxiety/Panic, No Depression, No SI/HI/AH/VH, No Social Issues, Heme/Lymph: No Bruising, No Bleeding,No Lymphadenopathy Endocrine : No Polyuria, No Polydipsia, No Temperature Intolerance PMFSH Past Medical History Medical History Diabetes Herniated cervical disc HTN (hypertension) Myocardial infarct Surgical History H/O cervical discectomy H/O elbow surgery Hx of BKA S/P CABG x 1 Social History Social History Household Members: None Housing: Apartment Do you presently have visiting nurse or other home services: Yes Cigarette Packs Per Day: 0.5 Cigarettes Per Day: 10.0 Substance Use Type: Marijuana Advance Directives: No Advance Directives Information Provided: Yes service: No Physical Exam ED Vital Signs: Vital Signs - 24 hr 03/04/23 22:08 03/05/23 02:31 03/05/23 04:07 Temperature 96.8 F 98.0 F 97.7 F Pulse Rate 60 60 60 Respiratory Rate 18 18 17 Blood Pressure 99/44 L 141/48 H 118/45 L Pulse Oximetry 98 100 96 Oxygen Delivery Method Room Air Room Air Room Air 03/05/23 05:48 Temperature 97.7 F Pulse Rate 60 Respiratory Rate 15 Blood Pressure 113/48 L Pulse Oximetry 100 Oxygen Delivery Method Room Air BMI result Body Mass Index 21.5 Const Other: Appearance: Alert. Oriented X3. No acute distress. Eyes: Pupils equal, round and reactive to light. ENT: Pharynx normal. Neck: Normal inspection. Neck supple. No lymph nodes noted. No crepitus CVS: Normal heart rate and rhythm. Pulses normal. Normal S1 and S2 Respiratory: No respiratory distress. Breath sounds normal. No Wheezing. No rales Abdomen: Soft , tenderness to palpation in left lower quadrant, incision of angiogram looks clean, no cellulitis, no signs of an abscess Skin: Skin warm and dry. Normal skin color. Normal skin turgor. Extremities: Left BKA Neuro: Oriented X 3. No motor deficit. No sensory deficit. Moving all extremities. No slurred speech. CN 2 through 12 grossly intact Psych: calm, cooperative, normal affect Course Course Course Narrative: -all of patient's labs and imaging pending Medical Decision Making Medical Decision Making MDM Narrative: -my interpretation EKG: Atrial paced rhythm, heart rate 60, no ST segment depression or elevation, T-wave inversion in lead V3 V4 previously seen on EKG in 2019. QTC 490. Patient 2 weeks status post angiogram -patient refused to have her CT scan done with contrast, CT scan done without contrast -I received a phone call from [facility], I discussed the CT scan with Dr. Bingham, patient have a retroperitoneal hematoma, unclear if it is acute versus subacute. Also femoral artery pseudoaneurysm cannot be excluded. I discussed this with the patient, patient is now agreeable to have the CT scan repeated with contrast -CT scan with contrast shows a left retroperitoneal mass, approximately 13 cm hematoma. Patient will likely need to be transferred to [facility]. -I discussed the patient with Dr. Rosales who will be taking over patient's care. -patient's vitals stable, blood pressure 113/48, pulse 60 Differential Diagnosis Differential Diagnoses: The differential diagnosis associated with the presentation includes (Diverticulosis, diverticulitis, retroperitoneal hematoma, femoral aneurysm/pseudoaneurysm) Admission/Observation Consideration of admission/observation: Escalation of care including admission/observation considered (Admission versus transfer is being considered, also having left lower quadrant pain at site of a recent angiogram) Lab Data MDM Lab Attestation statement: I reviewed the patient's lab results. 03/04/23 22:25 03/04/23 22:26 Labs: Lab Results 03/04/23 03/04/23 03/04/23 Range/Units 22:23 22:25 22:26 WBC 9.7 (4.8-10.8) X10*3/uL RBC 3.36 L (4.20-5.50) X10*6/uL Hgb 10.3 L (12.0-16.0) g/dl Hct 31.7 L (37.0-47.0) % MCV 94.3 (80.0-98.0) fL MCH 30.7 (27.0-33.0) pg MCHC 32.5 (31.0-35.0) g/dl RDW 13.6 (11.0-16.0) % Plt Count 325 (160-400) X10*3/uL MPV 9.3 L (9.4-12.3) fL Immature Gran % (Auto) 1.5 H (0.0-0.4) % Neut % (Auto) 75.9 H (45-73) % Lymph % (Auto) 15.0 L (20-40) % [place] % (Auto) 6.0 (2-11) % Eos % (Auto) 1.1 (0-4) % Baso % (Auto) 0.5 (0-2) % Lymph # (Auto) 1.5 (1.2-4.9) X10*3/uL [place] # (Auto) 0.6 (0.1-1.2) X10*3/uL Eos # (Auto) 0.1 (0.0-0.4) X10*3/uL Baso # (Auto) 0.1 (0.0-0.2) X10*3/uL Abs Immat Gran (auto) 0.14 H (0.00-0.03) X10*3/uL Absolute Neuts (auto) 7.3 (2.0-8.3) x10*3/uL Absolute Nucleated RBC 0.000 (0.0-0.012) X10*3/uL Nucleated RBC % (auto) 0.0 (0.0-0.2) /100WBC Sodium 139 (135-145) mmol/L Potassium 4.3 (3.3-5.1) mmol/L Chloride 105 (96-108) mmol/L Carbon Dioxide 28 (22-29) mmol/L Anion Gap 10 L (12-20) BUN 18 H (9-16) mg/dL Creatinine 0.88 (0.5-1.4) mg/dL Estim Creat Clear Calc 60.1 Estimated GFR > 60 Random Glucose 152 H (60-115) mg/dL Calcium 8.8 D (8.4-10.2) mg/dL Total Bilirubin 0.5 (0.0-1.0) mg/dL AST 12 (5-31) U/L ALT 8 (0-31) U/L Alkaline Phosphatase 70 (39-117) U/L Troponin I High Sens (<3.5-17.0) ng/L Total Protein 6.4 L (6.5-8.0) g/dL Albumin 3.4 L (3.5-5.0) g/dL Lipase 31 (8-78) U/L COVID-19 (CRISTY) (Negative) COVID-19 Clin Com Influenza Type A (DESIREE) Influenza Type A (PCR) NEGATIVE (Negative) Influenza Type B (DESIREE) Influenza Type B (PCR) NEGATIVE (Negative) Influenza A & B Note RSV RNA Qual (PCR) NEGATIVE (Negative) SARS-CoV-2 RNA (RT-PCR) NEGATIVE (Negative) 03/04/23 03/04/23 03/04/23 Range/Units 22:26 22:26 22:26 WBC (4.8-10.8) X10*3/uL RBC (4.20-5.50) X10*6/uL Hgb (12.0-16.0) g/dl Hct (37.0-47.0) % MCV (80.0-98.0) fL MCH (27.0-33.0) pg MCHC (31.0-35.0) g/dl RDW (11.0-16.0) % Plt Count (160-400) X10*3/uL MPV (9.4-12.3) fL Immature Gran % (Auto) (0.0-0.4) % Neut % (Auto) (45-73) % Lymph % (Auto) (20-40) % [place] % (Auto) (2-11) % Eos % (Auto) (0-4) % Baso % (Auto) (0-2) % Lymph # (Auto) (1.2-4.9) X10*3/uL [place] # (Auto) (0.1-1.2) X10*3/uL Eos # (Auto) (0.0-0.4) X10*3/uL Baso # (Auto) (0.0-0.2) X10*3/uL Abs Immat Gran (auto) (0.00-0.03) X10*3/uL Absolute Neuts (auto) (2.0-8.3) x10*3/uL Absolute Nucleated RBC (0.0-0.012) X10*3/uL Nucleated RBC % (auto) (0.0-0.2) /100WBC Sodium (135-145) mmol/L Potassium (3.3-5.1) mmol/L Chloride (96-108) mmol/L Carbon Dioxide (22-29) mmol/L Anion Gap (12-20) BUN (9-16) mg/dL Creatinine (0.5-1.4) mg/dL Estim Creat Clear Calc Estimated GFR Random Glucose (60-115) mg/dL Calcium (8.4-10.2) mg/dL Total Bilirubin (0.0-1.0) mg/dL AST (5-31) U/L ALT (0-31) U/L Alkaline Phosphatase (39-117) U/L Troponin I High Sens < 2.7 (<3.5-17.0) ng/L Total Protein (6.5-8.0) g/dL Albumin (3.5-5.0) g/dL Lipase (8-78) U/L COVID-19 (CRISTY) Negative (Negative) COVID-19 Clin Com See Note Influenza Type A (DESIREE) Cancelled Influenza Type A (PCR) (Negative) Influenza Type B (DESIREE) Cancelled Influenza Type B (PCR) (Negative) Influenza A & B Note Cancelled RSV RNA Qual (PCR) (Negative) SARS-CoV-2 RNA (RT-PCR) (Negative) Radiology Impression Discussion of test interpretation with radiology: I have reviewed the radiologist's reading. Radiologist Impression: FINDINGS: LUNG BASES: Calcification noted along the pericardium.? LIVER, GALLBLADDER, AND BILIARY TREE: The liver is mildly enlarged with homogeneous attenuation. No focal hepatic lesion or biliary ductal dilatation is present. Cholelithiasis is noted.? PANCREAS: Unremarkable.? SPLEEN: Unremarkable.? ADRENAL GLANDS: Thickened appearance of the adrenal glands is again noted.? KIDNEYS AND URETERS: Bilateral nephrograms are symmetric. No hydronephrosis or obstructing calculus identified. Multiple bilateral renal hilar calcifications, at least some of which are favored to be vascular. BLADDER: Mildly distended and grossly unremarkable.? GASTROINTESTINAL TRACT: Limited assessment for wall thickening in some segments of the colon due to luminal collapse. No evidence of bowel obstruction. The appendix is unremarkable. No free air is seen.? ABDOMINAL WALL: No significant hernia is appreciated.? LYMPH NODES: Normal. VASCULAR: There is extensive atherosclerotic plaque and calcification along the aorta, abdominal vessels, and bilateral iliac arteries. There is a right common iliac artery stent. The left common femoral artery in particular is not well assessed due to extensive calcification, and the vessel appears to be at least partially thrombosed distally, along with thrombosis of the visualized proximal left superficial femoral artery. Assessment for pseudoaneurysm is limited in this setting. The proximal right femoral vein appears distended with central hypoattenuation, most suspicious for deep venous thrombosis. Redemonstrated left retroperitoneal mass which is overall mildly hypoattenuating with some internal slightly hyperattenuating components. This measures up to approximately 13 cm in the axial plane and is suspicious for hematoma, unchanged from recent prior. Additional collection medial to the left common femoral vessels is again noted measuring up to approximately 4 cm consistent with additional hematoma. PELVIC VISCERA: Calcified uterine fibroid.? OSSEOUS STRUCTURES: Degenerative changes are noted in the spine.? CT/CT abdomen pelvis w IV con IMPRESSION: 1.? Extensive atherosclerotic disease. The left common femoral artery in particular is not well assessed due to extensive calcification, and the vessel appears to be at least partially thrombosed distally, along with thrombosis of the visualized proximal left superficial femoral artery. Assessment for pseudoaneurysm is limited in this setting. 2.? Distention of the proximal right femoral vein with central hypoattenuation, most suspicious for deep venous thrombosis. Evaluation with vascular ultrasound is recommended. 3.? Redemonstrated left retroperitoneal collection suspicious for hematoma, unchanged from recent prior. Additional hematoma medial to the left common femoral vessels is also again noted. 4.? Cholelithiasis. Medications Administered Discontinued Medications Generic Name Dose Route Start Last Admin Trade Name Freq PRN Reason Stop Dose Admin Iohexol 85 ml 03/05/23 04:16 03/05/23 04:18 Iohexol 350 Mg/Ml 100 Ml Infus..Btl IV 03/05/23 04:17 85 ml ONCE ONE Administration Ondansetron HCl 4 mg 03/05/23 02:28 03/05/23 03:11 Ondansetron Odt 4 Mg Tab.Rapdis TRANSLINGU 03/05/23 02:29 4 mg ONCE ONE Administration Critical Care Time Critical Care Time Critical Care Time: Yes Total Critical Care Time: 60 Attestation: I have personally provided critical care time. Time includes review of lab data, radiology results, discussion with consultants, and monitoring for potential decompensation. Intervention performed as documented. Discharge Plan Discharge Clinical Impression: Retroperitoneal hematoma Patient Disposition: [facility] Transfer Details: [facility] Prescriptions: No Action cyclobenzaprine 10 mg Tablet 10 mg PO TID PRN (Reason: Pain) atorvastatin [Lipitor] 40 mg Tablet 40 mg PO DAILY metformin 500 mg Tablet 1,000 mg PO DAILY Hold Instructions: Resume on 05/21/20. hold pending MD direction at [facility] [place] metoprolol tartrate 100 mg Tablet 100 mg PO DAILY nitroglycerin 0.4 mg Tablet, Sublingual 0.4 mg SUBLINGUAL Q5M PRN (Reason: Angina) docusate sodium 100 mg Capsule 100 mg PO DAILY aspirin 81 mg Tablet 81 mg PO DAILY hydrochlorothiazide 25 mg Tablet 25 mg PO DAILY zolpidem 10 mg Tablet 10 mg PO BEDTIME PRN (Reason: Insomnia) lisinopril 40 mg Tablet 40 mg PO DAILY oxycodone 5 mg Tablet 5 mg PO Q6H PRN (Reason: Pain) aripiprazole [Abilify] 10 mg Tablet 10 mg PO DAILY clopidogrel 75 mg Tablet 75 mg PO DAILY Qty: 1 0RF insulin lispro [Humalog U-100 Insulin] 100 unit/mL Solution See Protocol subcut QIDACHS 1 Days 0RF Protocol: Insulin Normal Sensitivity 1st 24 hrs Less than or equal to 110 ---- Give (units): 0 111 to 150 Give (units): 0 151 to 200 Give (units): 2 201 to 250 Give (units): 4 251 to 300 Give (units): 6 301 to 350 Give (units): 8 Greater than 350 Give (units): 10 Call MD if Blood Glucose > : 350 heparin(porcine) in 0.45% NaCl 25,000 unit/250 mL Parenteral Solution 25,000 unit continuous IV infusion .Q0M Qty: 1 0RF
[2023-03-05 02:31] VITALS: BP 141/48; PULSE 60; RESP 18; TEMP 36.7; O2SAT 100
[2023-03-05] MEDS: Ondansetron ODT 4 MG TAB.RAPDIS TRANSLINGU (03:11)
[2023-03-05 04:07] VITALS: BP 118/45; PULSE 60; RESP 17; TEMP 36.5; O2SAT 96
[2023-03-05] MEDS: iohexoL 350 MG/ML 100 ML INFUS..BTL 85 ML IV (04:18)
[2023-03-05 05:48] VITALS: BP 113/48; PULSE 60; RESP 15; TEMP 36.5; O2SAT 100
--- NOTE | 2023-03-05 07:20 | PC.NURSE ---
care assumed for this patient. pt found sitting up in bed- aox3 apeaking in full clear sentences. pt reports she was recently cleaned d.t being incontinent of urine. awaiting ultrasound s/p ct results. requesting coffee but educated to hold off. denied having any questions at this time.
[2023-03-05 08:11] VITALS: BP 125/63; PULSE 60; RESP 14; TEMP 36.6; O2SAT 97
--- NOTE | 2023-03-05 08:16 | PC.NURSE ---
attempt to call for report. david chicas to call back
--- NOTE | 2023-03-05 08:44 | PC.NURSE ---
report given to esteban chicas at [facility]
== END 2023-03-05 09:29 | disposition short-term general hospital (02) ==
PROVIDERS: Emergency Medicine; Emergency Provider Emergency Medicine
DX: R11.2 Nausea with vomiting, unspecified (principal); R10.32 Left lower quadrant pain; R94.31 Abnormal electrocardiogram [ECG] [EKG]; F17.210 Nicotine dependence, cigarettes, uncomplicated; Z71.6 Tobacco abuse counseling; Z20.822 Contact with and (suspected) exposure to COVID-19; Z20.828 Contact with and (suspected) exposure to other viral communicable diseases; Z79.899 Other long term (current) drug therapy
CPT/HCPCS: 0241U; 74176; 74177; 80053; 83690; 84484; 85025; 87502; 87635; 93005; 99285; Q9967

== ENCOUNTER 2023-03-10 21:19 | Observation (INO) | payer MEDICAID, SELFPAY ==
--- NOTE | ~2023-03-10 | XR_ITS ---
EXAMINATION: XR CHEST CLINICAL INFORMATION: Chest pain COMPARISON: Chest x-ray May 13, 2020 TECHNIQUE: 2 views of the chest were obtained. FINDINGS: Status post median sternotomy. Pacemaker leads in right atrium and right ventricle. Cardiac mediastinal contours normal. Heart size normal. No pulmonary vascular congestion. Lungs are normally aerated. There is no pleural effusion or pneumothorax. XR/XR chest 2V IMPRESSION: No acute abnormality of the chest.
--- NOTE | 2023-03-10 21:21 | ECG_ITS ---
Test Reason : CP Blood Pressure : / mmHG Vent. Rate : 079 BPM Atrial Rate : 079 BPM P-R Int : 158 ms QRS Dur : 094 ms QT Int : 354 ms P-R-T Axes : 066 003 130 degrees QTc Int : 405 ms Sinus rhythm with marked sinus arrhythmia with occasional Atrial-paced rhythm Possible Left atrial enlargement ST & T wave abnormality, consider lateral ischemia Abnormal ECG When compared with ECG of 04-MAR-2023 22:18, Sinus rhythm has replaced Electronic atrial pacemaker ST now depressed in Lateral leads QT has shortened Referred By: Generic ED Physician Electronically Signed By:JEROME RIVERA
[2023-03-10 21:25] VITALS: BP 194/84; PULSE 77; RESP 18; TEMP 36.8; O2SAT 100; BMI 21.5
[2023-03-10 21:35] LABS: MANUAL DIFF FLAG NO
[2023-03-10 21:36] LABS: Basophils Absolute Auto 0.1 X10*3/uL (0.0-0.2); Basophils Percent Auto 0.7 % (0-2); Eosinophils Absolute Auto 0.2 X10*3/uL (0.0-0.4); Eosinophils Percent Auto 1.5 % (0-4); Hemoglobin 13.3 g/dl (12.0-16.0); Imm Gran Abs Auto 0.14 X10*3/uL (0.00-0.03); Imm Gran Pct Auto 1.1 % (0.0-0.4); Lymphocytes Absolute Auto 3.4 X10*3/uL (1.2-4.9); Lymphocytes Percent Auto 27.5 % (20-40); Mean Corpuscular HGB Conc 33.3 g/dl (31.0-35.0); Mean Corpuscular Hemoglobin 31.1 pg (27.0-33.0); Mean Corpuscular Volume 93.5 fL (80.0-98.0); Mean Platelet Volume 9.3 fL (9.4-12.3); Monocytes Absolute Auto 0.6 X10*3/uL (0.1-1.2); Monocytes Percent Auto 5.1 % (2-11); Neutrophils Percent Auto 64.1 % (45-73); Platelet Count 338 X10*3/uL (160-400); Red Blood Count 4.28 X10*6/uL (4.20-5.50); Red Cell Distribution Width 14.1 % (11.0-16.0); White Blood Count 12.5 X10*3/uL (4.8-10.8)
[2023-03-10 21:43] LABS: INTERNATIONAL NORM RATIO 0.9 (0.9-1.1); Prothrombin Time 11.2 SEC (11.1-13.3)
[2023-03-10 21:52] LABS: Alanine Aminotransferase 7 U/L (0-31); Albumin Level 4.1 g/dL (3.5-5.0); Alkaline Phosphatase 88 U/L (39-117); Anion Gap 14 (12-20); Aspartate Amino Transferase 15 U/L (5-31); Bilirubin Total 0.4 mg/dL (0.0-1.0); Blood Urea Nitrogen 17 mg/dL (9-16); Calcium 9.8 mg/dL (8.4-10.2); Carbon Dioxide 25 mmol/L (22-29); Chloride 103 mmol/L (96-108); Creatinine Clr Calc Pharmacy 66.1; Estimated Glomerular Filt Rate > 60; Glucose Random 150 mg/dL (60-115); Potassium 3.7 mmol/L (3.3-5.1); Sodium 138 mmol/L (135-145); Total Protein 7.9 g/dL (6.5-8.0)
[2023-03-10 21:53] VITALS: PULSE 72
--- NOTE | 2023-03-10 21:57 | PC.NURSE ---
Pt brought back from waiting room via wheelchair, pt reporting substernal burning CP with no radiation that started at 6pm tonight, took nitro x3 with no relief, reports 6/10 pain, reports SOB/N maría. Pt placed on bedside monitor, EKG obtained and reviewed by provider, IV line placed, SpO2:98% RA, lung sounds clear.
--- NOTE | 2023-03-10 21:58 | ED_ITS ---
HPI - Chest Pain General Chief Complaint: Chest Pain Stated Complaint: chest pain, pace maker Time Seen by Provider: 03/10/23 21:46 Source: patient Mode of arrival: ambulatory History of Present Illness HPI narrative: 57-year-old female with history of this everyday smoker, hypertension, diabetes who presents with chest pain that started approximately 17-1800 this evening and is described as midsternal and she states feels like acid, denies any dizziness, shortness of breath or nausea. Patient is status post defibrillator approximate ly 1 month ago. She denies any fevers or chills. Related Data Home Medications Medication Instructions Recorded Confirmed aripiprazole 10 mg tablet (Abilify) 10 mg PO DAILY 05/13/20 05/13/20 aspirin 81 mg tablet 81 mg PO DAILY 05/13/20 05/13/20 atorvastatin 40 mg tablet (Lipitor) 40 mg PO DAILY 05/13/20 05/13/20 cyclobenzaprine 10 mg tablet 10 mg PO TID PRN Pain 05/13/20 05/13/20 docusate sodium 100 mg capsule 100 mg PO DAILY 05/13/20 05/13/20 hydrochlorothiazide 25 mg tablet 25 mg PO DAILY 05/13/20 05/13/20 lisinopril 40 mg tablet 40 mg PO DAILY 05/13/20 05/13/20 metformin 500 mg tablet 1,000 mg PO DAILY 05/13/20 05/13/20 metoprolol tartrate 100 mg tablet 100 mg PO DAILY 05/13/20 05/13/20 nitroglycerin 0.4 mg sublingual 0.4 mg sublingual Q5M PRN Angina 05/13/20 05/13/20 tablet oxycodone 5 mg tablet 5 mg PO Q6H PRN Pain 05/13/20 05/13/20 zolpidem 10 mg tablet 10 mg PO BEDTIME PRN Insomnia 05/13/20 05/13/20 Previous Rx's Medication Instructions Recorded clopidogrel 75 mg tablet 75 mg PO DAILY #1 tab 05/14/20 heparin (porcine) 25,000 unit/250 25,000 unit (250 mL) continuous IV 05/14/20 mL in 0.45 % sodium chloride IV infusion .Q0M #1 mL soln insulin lispro 100 unit/mL See Protocol subcut QIDACHS 1 day 11/06/20 subcutaneous solution (Humalog U-100 Insulin) Allergies Allergy/AdvReac Type Severity Reaction Status Date / Time ibuprofen [From Motrin] Allergy Stomach Verified 03/04/23 22:07 Upset Review of Systems Review of Systems: Pertinent positives and negatives as stated in [facility] Past Medical History Source: nursing notes reviewed Medical History Diabetes Herniated cervical disc HTN (hypertension) Myocardial infarct Surgical History H/O cervical discectomy H/O elbow surgery Hx of BKA S/P CABG x 1 Social History Social History Household Members: None Housing: Apartment Do you presently have visiting nurse or other home services: Yes Alcohol intake: current Alcohol intake frequency: a few times a week Alcohol type: beer Cigarette Packs Per Day: 0.5 Cigarettes Per Day: 10.0 Smoked in Last 30 Days: Yes Use of substances other than those prescribed or required for medical reasons: Yes Substance Use Type: Marijuana Advance Directives: No Advance Directives Information Provided: Yes Patient : No service: No Physical Exam Vital Signs: Vital Signs: Last Vital Signs Temp 98.3 F 03/10/23 23:30 Pulse 60 03/10/23 23:30 Resp 20 03/10/23 23:30 BP 124/50 L 03/10/23 23:30 Pulse Ox 98 03/10/23 23:30 O2 Del Method Room Air 03/10/23 23:30 BMI result Body Mass Index 21.5 VITAL SIGNS: Reviewed. GENERAL: Well developed, well nourished, in no acute distress, patient sleeping. HEAD: Normocephalic/atraumatic EYES: PERRLA, EOMI EARS: Ext canals without abnormality NOSE: Nares patent bilateral OROPHARYNX: no oral lesions noted, posterior pharynx clear NECK: Supple, no adenopathy LUNGS: Normal breath sounds. No adventitious sounds or accessory muscle use. SpO2<98>; CHEST WALL: There is a well-healing incision at the upper left anterior chest where defibrillator has been placed without surrounding erythema or induration. CARDIOVASCULAR: Regular rate and rhythm without noted murmurs, no JVD but 1+ pitting in RLE ABDOMEN: Soft, non-tender, non-distended with bowel sounds. MUSCULOSKELETAL: No tenderness, deformities, or effusions noted on gross inspection. EXTREMITIES: No cyanosis, clubbing or edema. SKIN: Inspection of the skin reveals no rashes, ulcerations NEUROLOGIC: Alert and oriented x 4. Strength and sensation to light touch were grossly intact x 4. Medications Administered Discontinued Medications Generic Name Dose Route Start Last Admin Trade Name Freq PRN Reason Stop Dose Admin Lidocaine/Diphenhydr/Alum/Mg/Simeth 10 ml 03/10/23 22:53 03/10/23 23:48 Mag&Al/Sim/Diphenhyd/Lidocaine 10 Ml Oral.Susp PO 03/10/23 22:54 10 ml ONCE ONE Administration Protocol Medical Decision Making Medical Decision Making [facility] Narrative: 57-year-old female with history and clinical presentation, DDX: Acid reflux, pneumonia, ACS. HEART Score-7 I reviewed all investigations and there is a noted leukocytosis, patient is afebrile, no left shift, no anemia or thrombocytopenia. Coagulation studies are within normal limits. Chemistry indices are grossly and chronically stable, there is no HOLLIE, troponin is undetectable, and electrolytes/liver enzymes are without derangement. EKG however demonstrates ST abnormalities in lateral leads which are a change from EKG on 03/04/2023. Viral testing is negative and chest x-ray without evidence of infiltrate and otherwise I agree with the radiology's impression 0054: I discussed case with cardiology, DR Still, who agrees with admission at this time but no heparin at this time. 0100: I discussed case with inpatient hospitalist who accepts admission. Differential Diagnosis Differential Diagnoses: The differential diagnosis associated with the presentation includes Please see the discussion above Admission/Observation Consideration of admission/observation: Escalation of care including admission/observation considered Please see the discussion above Consult Healthcare Provider Management of the patient was discussed with: Manager Solution Please see the discussion above Lab Data [facility] Lab Attestation statement: I reviewed the patient's lab results. Please see the discussion above 03/10/23 21:30 03/10/23 21:30 Labs: Lab Results 03/10/23 03/10/23 03/10/23 Range/Units 21:30 21:30 21:30 WBC 12.5 H (4.8-10.8) X10*3/uL RBC 4.28 D (4.20-5.50) X10*6/uL Hgb 13.3 D (12.0-16.0) g/dl Hct 40.0 D (37.0-47.0) % MCV 93.5 (80.0-98.0) fL MCH 31.1 (27.0-33.0) pg MCHC 33.3 (31.0-35.0) g/dl RDW 14.1 (11.0-16.0) % Plt Count 338 (160-400) X10*3/uL MPV 9.3 L (9.4-12.3) fL Immature Gran % (Auto) 1.1 H (0.0-0.4) % Neut % (Auto) 64.1 (45-73) % Lymph % (Auto) 27.5 (20-40) % Harrison % (Auto) 5.1 (2-11) % Eos % (Auto) 1.5 (0-4) % Baso % (Auto) 0.7 (0-2) % Lymph # (Auto) 3.4 (1.2-4.9) X10*3/uL Harrison # (Auto) 0.6 (0.1-1.2) X10*3/uL Eos # (Auto) 0.2 (0.0-0.4) X10*3/uL Baso # (Auto) 0.1 (0.0-0.2) X10*3/uL Abs Immat Gran (auto) 0.14 H (0.00-0.03) X10*3/uL Absolute Neuts (auto) 8.0 (2.0-8.3) x10*3/uL Absolute Nucleated RBC 0.000 (0.0-0.012) X10*3/uL Nucleated RBC % (auto) 0.0 (0.0-0.2) /100WBC PT 11.2 (11.1-13.3) SEC INR 0.9 (0.9-1.1) Sodium 138 (135-145) mmol/L Potassium 3.7 (3.3-5.1) mmol/L Chloride 103 (96-108) mmol/L Carbon Dioxide 25 (22-29) mmol/L Anion Gap 14 (12-20) BUN 17 H (9-16) mg/dL Creatinine 0.80 (0.5-1.4) mg/dL Estim Creat Clear Calc 66.1 Estimated GFR > 60 Random Glucose 150 H (60-115) mg/dL Calcium 9.8 D (8.4-10.2) mg/dL Total Bilirubin 0.4 (0.0-1.0) mg/dL AST 15 (5-31) U/L ALT 7 (0-31) U/L Alkaline Phosphatase 88 (39-117) U/L Troponin I High Sens (<3.5-17.0) ng/L Total Protein 7.9 (6.5-8.0) g/dL Albumin 4.1 (3.5-5.0) g/dL Influenza Type A (PCR) (Negative) Influenza Type B (PCR) (Negative) RSV RNA Qual (PCR) (Negative) SARS-CoV-2 RNA (RT-PCR) (Negative) 03/10/23 03/10/23 03/10/23 Range/Units 21:30 23:37 23:37 WBC (4.8-10.8) X10*3/uL RBC (4.20-5.50) X10*6/uL Hgb (12.0-16.0) g/dl Hct (37.0-47.0) % MCV (80.0-98.0) fL MCH (27.0-33.0) pg MCHC (31.0-35.0) g/dl RDW (11.0-16.0) % Plt Count (160-400) X10*3/uL MPV (9.4-12.3) fL Immature Gran % (Auto) (0.0-0.4) % Neut % (Auto) (45-73) % Lymph % (Auto) (20-40) % Harrison % (Auto) (2-11) % Eos % (Auto) (0-4) % Baso % (Auto) (0-2) % Lymph # (Auto) (1.2-4.9) X10*3/uL Harrison # (Auto) (0.1-1.2) X10*3/uL Eos # (Auto) (0.0-0.4) X10*3/uL Baso # (Auto) (0.0-0.2) X10*3/uL Abs Immat Gran (auto) (0.00-0.03) X10*3/uL Absolute Neuts (auto) (2.0-8.3) x10*3/uL Absolute Nucleated RBC (0.0-0.012) X10*3/uL Nucleated RBC % (auto) (0.0-0.2) /100WBC PT (11.1-13.3) SEC INR (0.9-1.1) Sodium (135-145) mmol/L Potassium (3.3-5.1) mmol/L Chloride (96-108) mmol/L Carbon Dioxide (22-29) mmol/L Anion Gap (12-20) BUN (9-16) mg/dL Creatinine (0.5-1.4) mg/dL Estim Creat Clear Calc Estimated GFR Random Glucose (60-115) mg/dL Calcium (8.4-10.2) mg/dL Total Bilirubin (0.0-1.0) mg/dL AST (5-31) U/L ALT (0-31) U/L Alkaline Phosphatase (39-117) U/L Troponin I High Sens < 2.7 18.3 H D (<3.5-17.0) ng/L Total Protein (6.5-8.0) g/dL Albumin (3.5-5.0) g/dL Influenza Type A (PCR) NEGATIVE (Negative) Influenza Type B (PCR) NEGATIVE (Negative) RSV RNA Qual (PCR) NEGATIVE (Negative) SARS-CoV-2 RNA (RT-PCR) NEGATIVE (Negative) Independent Interpretation I performed an independent interpretation of an: EKG Interpretation: Sinus rhythm, HR-79, no STEMI, ST abnormalities specifically in lateral leads which are unchanged from prior EKG. 0049: Atrial paced rhythm, HR-60, no STEMI but significant ST-T abnormalities, MO/QRS/QTC is within normal limits. Radiology Impression Discussion of test interpretation with radiology: I have reviewed the radiologist's reading. Radiologist Impression: Please see the discussion above External Record Review External record reviewed: Outpatient record, Prior outpatient labs and Prior outpatient radiology Chronic Conditions Patient?s care impacted by: Diabetes and Hypertension Critical Care Time Critical Care Time Critical Care Time: Yes Total Critical Care Time: 30 Attestation: I personally attest to this time spent taking care of the patient. Discharge Plan Discharge Clinical Impression: ACS (acute coronary syndrome) Patient Disposition: Admitted As Inpatient
[2023-03-10 22:06] LABS: Troponin-I High Sensitivity < 2.7 ng/L (<3.5-17.0)
[2023-03-10 22:14] VITALS: BP 134/63; PULSE 67; RESP 16; TEMP 36.8; O2SAT 98
[2023-03-10 23:30] VITALS: BP 124/50; PULSE 60; RESP 20; TEMP 36.8; O2SAT 98
--- NOTE | 2023-03-10 23:38 | MHC.EDTECH ---
0000 rounding done ,vitals sign taken ,pt repeated trop and rsv/covid swab collected and sent to lab ,pt is on personnel monitor and is resting in bed .
[2023-03-10] MEDS: Mag&Al/Sim/Diphenhyd/Lidocaine 10 ML ORAL.SUSP PO (23:48)
[2023-03-11 00:17] LABS: Influenza A PCR NEGATIVE (Negative); Influenza B PCR NEGATIVE (Negative); Resp Syncy Virus RNA Qual PCR NEGATIVE (Negative); SARS COV2 PCR INHOUSE NEGATIVE (Negative)
[2023-03-11 00:19] LABS: Troponin-I High Sensitivity 18.3 ng/L (<3.5-17.0)
--- NOTE | 2023-03-11 00:34 | ECG_ITS ---
Test Reason : chest pain Blood Pressure : / mmHG Vent. Rate : 060 BPM Atrial Rate : 060 BPM P-R Int : 172 ms QRS Dur : 098 ms QT Int : 456 ms P-R-T Axes : 003 007 147 degrees QTc Int : 456 ms Atrial-paced rhythm Minimal voltage criteria for LVH, may be normal variant ( Delaplaine product ) ST & T wave abnormality, consider anterolateral ischemia Abnormal ECG When compared with ECG of 10-MAR-2023 21:23, Electronic atrial pacemaker has replaced Sinus rhythm T wave inversion more evident in Anterior leads QT has lengthened Referred By: Cheri Portillo Electronically Signed By:JEROME RIVERA
--- NOTE | 2023-03-11 01:07 | PM.IMHP ---
History of Present Illness Date of Service: 03/11/23 Chief Complaint: Chest pain This is a 57-year-old female with pertinent history of insulin-dependent diabetes mellitus, essential hypertension, coronary artery disease status post CABG, mood disorder who presents to the emergency department for evaluation of chest discomfort. Patient states it started around 18:00 when she was trying to get up from the bed. It comes and goes and is without any exacerbating or relieving factors. Patient does not ambulate at baseline. She tried nitroglycerin at home but no relief. It is midsternal in location, does not radiate and not associated with nausea or sweating. No dyspnea. No symptoms of gastroesophageal reflux disease. She denies fever, chills, palpitations, abdominal pain, changes in urinary or bowel habits. In the emergency department, cardiology was consulted who requested admission Review of Systems Constitutional: Constitutional: Reports no additional constitutional complaints Cardiovascular: Cardiovascular: Reports chest pain Respiratory: Respiratory: Reports no additional respiratory complaints Gastrointestinal: Gastrointestinal: Reports no additional gastrointestinal complaints Genitourinary: Genitourinary: Reports no additional female genitourinary complaints Musculoskeletal: Musculoskeletal: Reports no additional musculoskeletal complaints Neurologic: Reports system reviewed and no additional complaints, except as documented [facility] Medical History Diabetes Herniated cervical disc HTN (hypertension) Myocardial infarct Pertinent family history: No family history of early CAD Surgical History H/O cervical discectomy H/O elbow surgery Hx of BKA S/P CABG x 1 Social History Household Members: None Housing: Apartment Do you presently have visiting nurse or other home services: Yes Alcohol intake: current Alcohol intake frequency: a few times a week Alcohol type: beer Cigarette Packs Per Day: 0.5 Cigarettes Per Day: 10.0 Smoked in Last 30 Days: Yes Use of substances other than those prescribed or required for medical reasons: Yes Substance Use Type: Marijuana Advance Directives: No Advance Directives Information Provided: Yes Patient : No service: No Meds Allergies Allergy/AdvReac Type Severity Reaction Status Date / Time ibuprofen [From Motrin] Allergy Stomach Verified 03/04/23 22:07 Upset Home Medications Medication Instructions Recorded Confirmed Last Taken Type aripiprazole 10 mg tablet (Abilify) 10 mg PO DAILY 05/13/20 05/13/20 05/13/20 History aspirin 81 mg tablet 81 mg PO DAILY 05/13/20 05/13/20 05/13/20 History atorvastatin 40 mg tablet (Lipitor) 40 mg PO DAILY 05/13/20 05/13/20 05/13/20 History cyclobenzaprine 10 mg tablet 10 mg PO TID PRN Pain 05/13/20 05/13/20 05/13/20 History docusate sodium 100 mg capsule 100 mg PO DAILY 05/13/20 05/13/20 05/13/20 History hydrochlorothiazide 25 mg tablet 25 mg PO DAILY 05/13/20 05/13/20 05/13/20 History lisinopril 40 mg tablet 40 mg PO DAILY 05/13/20 05/13/20 05/13/20 History metformin 500 mg tablet 1,000 mg PO DAILY 05/13/20 05/13/20 05/13/20 History metoprolol tartrate 100 mg tablet 100 mg PO DAILY 05/13/20 05/13/20 05/13/20 History nitroglycerin 0.4 mg sublingual 0.4 mg sublingual Q5M PRN Angina 05/13/20 05/13/20 05/13/20 History tablet oxycodone 5 mg tablet 5 mg PO Q6H PRN Pain 05/13/20 05/13/20 05/13/20 History zolpidem 10 mg tablet 10 mg PO BEDTIME PRN Insomnia 05/13/20 05/13/20 05/13/20 History Physical Exam Vital Signs and Narrative: Vital Signs: Last Vital Signs Temp 98.3 F 03/10/23 23:30 Pulse 60 03/10/23 23:30 Resp 20 03/10/23 23:30 BP 124/50 L 03/10/23 23:30 Pulse Ox 98 03/10/23 23:30 O2 Del Method Room Air 03/10/23 23:30 BMI result Body Mass Index 21.5 Middle-aged female lying in bed in no distress Neck supple, no JVD Regular rate and rhythm, S1-S2 heard Regular breath sounds bilaterally, no wheezing or crackles appreciated Abdomen soft nontender, no guarding, no rigidity Patient is awake, alert and oriented to self, place, time and person ; no focal motor deficit Psych: Normal mood No pedal edema Results Labs 03/10/23 21:30 03/10/23 21:30 Labs: Laboratory Results - last 24 hr 03/10/23 03/10/23 03/10/23 21:30 21:30 21:30 MCV 93.5 MCH 31.1 MCHC 33.3 RDW 14.1 Plt Count 338 MPV 9.3 L Immature Gran % (Auto) 1.1 H Neut % (Auto) 64.1 Lymph % (Auto) 27.5 Bradley % (Auto) 5.1 Eos % (Auto) 1.5 Baso % (Auto) 0.7 Lymph # (Auto) 3.4 Bradley # (Auto) 0.6 Eos # (Auto) 0.2 Baso # (Auto) 0.1 Abs Immat Gran (auto) 0.14 H Absolute Neuts (auto) 8.0 Absolute Nucleated RBC 0.000 Nucleated RBC % (auto) 0.0 PT 11.2 INR 0.9 Anion Gap 14 Estim Creat Clear Calc 66.1 Estimated GFR > 60 Random Glucose 150 H Calcium 9.8 D Total Bilirubin 0.4 AST 15 ALT 7 Alkaline Phosphatase 88 Total Protein 7.9 Albumin 4.1 Influenza Type A (PCR) Influenza Type B (PCR) RSV RNA Qual (PCR) SARS-CoV-2 RNA (RT-PCR) 03/10/23 23:37 MCV MCH MCHC RDW Plt Count MPV Immature Gran % (Auto) Neut % (Auto) Lymph % (Auto) Bradley % (Auto) Eos % (Auto) Baso % (Auto) Lymph # (Auto) Bradley # (Auto) Eos # (Auto) Baso # (Auto) Abs Immat Gran (auto) Absolute Neuts (auto) Absolute Nucleated RBC Nucleated RBC % (auto) PT INR Anion Gap Estim Creat Clear Calc Estimated GFR Random Glucose Calcium Total Bilirubin AST ALT Alkaline Phosphatase Total Protein Albumin Influenza Type A (PCR) NEGATIVE Influenza Type B (PCR) NEGATIVE RSV RNA Qual (PCR) NEGATIVE SARS-CoV-2 RNA (RT-PCR) NEGATIVE Imaging Radiologist's Impressions: Impressions Chest X-Ray 03/10/23 22:02 IMPRESSION: No acute abnormality of the chest. Assessment and Plan (1) Atypical chest pain: Status: Acute Plan This is a 57-year-old female with pertinent history of insulin-dependent diabetes mellitus, essential hypertension, coronary artery disease status post CABG, mood disorder who presents to the emergency department for evaluation of chest discomfort. #. Atypical chest discomfort. Will admit patient with cardiac monitoring. Cardiology was consulted from the ER, appreciate assistance. Trend troponin. Patient is on antiplatelet therapy and beta-arlyn #. Insulin-dependent diabetes mellitus. Initiating Accu-Cheks with sliding scale insulin before meals and at bedtime #. Essential hypertension. Continue home antihypertensives #. Mood disorder. Continue home mood stabilizers Med rec pending DVT prophylaxis: Lovenox Full code Time Spent With Patient Time: Total time managing care of this patient today ____ minutes. Quality Stroke Does the patient have a stroke diagnosis?: No VTE Prior VTE?: No VTE Risk Level:: Medical - moderate - high VTE Device Contraindication: Treatment Not Indicated VTE Drug Contraindication: N/A - Med Ordered
--- NOTE | 2023-03-11 01:26 | PC.NURSE ---
Pt resting quietly at this time, denies any CP or palpitations. Pt updated on plan of care. Pt 1x assist to bedside commode. Pt has left leg above the knee amputation.
[2023-03-11] MEDS: Enoxaparin Sodium 40 MG/0.4 ML SYRINGE SUBCUT (01:34)
[2023-03-11 01:36] VITALS: BP 150/60; PULSE 60; RESP 16; O2SAT 94
--- NOTE | 2023-03-11 02:28 | PC.NURSE ---
RN to RN report given to Drew pt will be transported by donor technician to [id number], pt aware of plan.
[2023-03-11 02:59] VITALS: BMI 21.6
[2023-03-11 03:49] VITALS: BP 138/64; PULSE 61; RESP 18; TEMP 37; O2SAT 96
[2023-03-11 04:12] LABS: Glucose, Whole Blood 82 mg/dL (60-115)
[2023-03-11 04:19] LABS: Appearance Urine Clear; Color Urine Yellow; Glucose Urine UA Negative (Negative); Leukocyte Esterase Urine Trace (Negative); Nitrite Urine Negative (Negative); PH 5.5 (5.0-9.0); Specific Gravity - Urine 1.015 (1.005-1.025); UMIC TRIGGER UACC YES; Urine Blood Negative (Negative); Urine Ketones Negative (Negative); Urine Protein Negative (Neg-Trace)
[2023-03-11 04:24] LABS: Bacteria Urine None Seen (None Seen); Hyaline Casts Urine 0-2 /LPF (0-2); RBC Urine 0-2 /HPF (0-2); Squamous Epithelial Cell Urine 0-2 /HPF (0-2); WBC Urine 0-5 /HPF (0-5)
[2023-03-11 07:08] LABS: MANUAL DIFF FLAG NO
[2023-03-11 07:10] LABS: Basophils Absolute Auto 0.1 X10*3/uL (0.0-0.2); Basophils Percent Auto 0.7 % (0-2); Eosinophils Absolute Auto 0.1 X10*3/uL (0.0-0.4); Eosinophils Percent Auto 0.9 % (0-4); Hematocrit 41.4 % (37.0-47.0); Hemoglobin 13.7 g/dl (12.0-16.0); Imm Gran Abs Auto 0.09 X10*3/uL (0.00-0.03); Lymphocytes Absolute Auto 2.3 X10*3/uL (1.2-4.9); Lymphocytes Percent Auto 27.3 % (20-40); Mean Corpuscular HGB Conc 33.1 g/dl (31.0-35.0); Mean Corpuscular Hemoglobin 30.9 pg (27.0-33.0); Mean Corpuscular Volume 93.5 fL (80.0-98.0); Mean Platelet Volume 9.7 fL (9.4-12.3); Monocytes Absolute Auto 0.5 X10*3/uL (0.1-1.2); Monocytes Percent Auto 5.7 % (2-11); Neutrophils Absolute Auto 5.5 x10*3/uL (2.0-8.3); Neutrophils Percent Auto 64.4 % (45-73); Platelet Count 283 X10*3/uL (160-400); Red Blood Count 4.43 X10*6/uL (4.20-5.50); Red Cell Distribution Width 13.8 % (11.0-16.0); White Blood Count 8.6 X10*3/uL (4.8-10.8)
[2023-03-11 07:16] VITALS: BP 140/74; PULSE 76; RESP 16; TEMP 36.4; O2SAT 100
[2023-03-11 07:26] LABS: Glucose, Whole Blood 83 mg/dL (60-115)
[2023-03-11 07:42] LABS: Anion Gap 11 (12-20); Blood Urea Nitrogen 18 mg/dL (9-16); Calcium 9.9 mg/dL (8.4-10.2); Carbon Dioxide 27 mmol/L (22-29); Chloride 107 mmol/L (96-108); Creatinine Clr Calc Pharmacy 67.8; Estimated Glomerular Filt Rate > 60; Glucose Random 81 mg/dL (60-115); Potassium 4.6 mmol/L (3.3-5.1); Sodium 140 mmol/L (135-145)
[2023-03-11 07:46] LABS: Troponin-I High Sensitivity 171.9 ng/L (<3.5-17.0)
--- NOTE | 2023-03-11 08:36 | PHA.MEDREC ---
Addendum entered by William Miller [facility] 03/11/23 12:10: PT IS UNSURE IF ON SOTALOL, AMIODARONE OR BOTH. I CALLED [facility] AND GOT DISCHARGE FROM 03/06. NO LONGER ON AMIODARONE Original Note: Pharmacy Consult ? Medication Reconciliation Pharmacy has completed the medication reconciliation. spoke with patient to confirm medications. Patient says she has the wellbutrin and seroquel at home but does not want to take them here at the hospital. She confirmed that the isosorbide was recently increased to 120 mg but patient complains that it makes her feel really dizzy and light headed and wants to decrease it again. Patient had a hard time remembering the amiodarone, which is due for a refill per claim history (last was 11/17 for a 90 DS). After describing what it was for and who prescribed it she started to remember and said she ran out of it and was supposed to pick it up on 03/05 but hasn't. Patient also reports running out of the nitroglycerin.
[2023-03-11] MEDS: 0.9 % Sodium Chloride Flush 3 ML SYRINGE IVFLUSH (09:25)
--- NOTE | 2023-03-11 10:47 | PM.CNCAR ---
History of Present Illness History of Present Illness Date of Service: 03/11/23 Requesting physician: Inge Tubbs Chief complaint: Chest pain, elevated troponins Narrative: 57-year-old female with complex medical issues including coronary artery bypass surgery, previous left sided amputation due to peripheral vascular disease and she has been wheelchair-bound, hypertension, hyperlipidemia and diabetes who is presenting with chest discomfort. She is describing a burning sensation as well as some pressure in the chest. She is saying this is different from anginal pain. Labs as shown troponins of 18 and 171. She had 1 run of nonsustained VT on telemetry. She previously had cardiac arrest and has ICD in place. She had cardiac catheterization last year after cardiac arrest. She recently had peripheral procedure complicated by retroperitoneal hematoma. She was conservatively treated at [facility]. She was sent home on aspirin and Plavix. She is also on sotalol 80 mg p.o. b.i.d.. She is currently symptom free. She has a fairly vague historian. 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) Alcohol intake: current Alcohol intake frequency: a few times a week Alcohol type: beer Patient Tobacco Use Status: Current everyday Tobacco user Tobacco use type: Cigarette Cigarette Packs Per Day: 0.5 Cigarettes Per Day: 6 Years Smoked: 42 Substance Use Type: Marijuana service: No Meds Allergies Allergy/AdvReac Type Severity Reaction Status Date / Time ibuprofen [From Motrin] Allergy Stomach Verified 03/04/23 22:07 Upset Active Medications: Current Medications Acetaminophen (Acetaminophen 325 Mg Tablet) 650 mg PO Q6H PRN PRN Reason: Pain, Mild (Pain Scale 1-3) Dextrose (Dextrose 50 % 25 Gm/50 Ml Syringe) 25 gm IVPUSH Q15M PRN; Protocol PRN Reason: per Hypoglycemia Standing Ord. Enoxaparin Sodium (Enoxaparin Sodium 40 Mg/0.4 Ml Syringe) 40 mg SUBCUT Q24H [facility] Last Admin: 03/11/23 01:34 Dose: 40 mg Glucose (Glucose Gel 15 Gm Gel..Gram.) 15 gm PO Q15M PRN; Protocol PRN Reason: per Hypoglycemia Standing Ord. Insulin Human Lispro (Insulin Lispro 100 Unit/Ml 3 Ml Vial) 0 unit SUBCUT QIDACHS [facility]; Protocol Last Admin: 03/11/23 08:27 Dose: Not Given Melatonin (Melatonin 3 Mg Tablet) 6 mg PO BEDTIME PRN PRN Reason: Insomnia Ondansetron HCl (Ondansetron Hcl 4 Mg/2 Ml Vial) 4 mg IVPUSH Q8H PRN PRN Reason: Nausea and Vomiting Sodium Chloride (0.9 % Sodium Chloride Flush 3 Ml Syringe) 3 ml IVFLUSH QSHIFT [facility] Last Admin: 03/11/23 09:25 Dose: 3 ml Home Medications Medication Instructions Recorded Confirmed Last Taken Type aspirin 81 mg tablet 81 mg PO DAILY 05/13/20 03/11/23 05/13/20 History nitroglycerin 0.4 mg sublingual 0.4 mg sublingual Q5M PRN Angina 05/13/20 03/11/23 05/13/20 History tablet amiodarone 200 mg tablet 200 mg PO QAM 03/11/23 Unknown History amlodipine 5 mg tablet 5 mg PO QAM 03/11/23 03/11/23 Unknown History atorvastatin 80 mg tablet 80 mg PO QPM 03/11/23 03/11/23 Unknown History bupropion HCl 200 mg tablet,12 hr 200 mg PO BID 03/11/23 03/11/23 Unknown History sustained-release carvedilol 12.5 mg tablet 12.5 mg PO BID 03/11/23 03/11/23 Unknown History cholecalciferol (vitamin D3) 25 25 mcg PO QAM 03/11/23 03/11/23 Unknown History mcg (1,000 unit) capsule (Vitamin D3) docusate sodium 100 mg capsule 100 mg PO BID 03/11/23 03/11/23 Unknown History isosorbide mononitrate 120 mg 120 mg PO QAM 03/11/23 03/11/23 Unknown History tablet,extended release 24 hr lisinopril 20 mg tablet 20 mg PO QPM 03/11/23 03/11/23 Unknown History metformin 500 mg tablet 500 mg PO BID 03/11/23 03/11/23 Unknown History oxycodone 5 mg tablet 5 mg PO Q12H PRN severe pain 03/11/23 03/11/23 Unknown History pantoprazole 20 mg tablet,delayed 20 mg PO QAM 03/11/23 03/11/23 Unknown History release quetiapine 100 mg tablet 100 - 200 mg PO BEDTIME 03/11/23 03/11/23 Unknown History sotalol 80 mg tablet 80 mg PO BID 03/11/23 03/11/23 Unknown History Physical Exam Vital Signs: Vital Signs: Last Vital Signs Temp 97.5 F 03/11/23 07:16 Pulse 76 03/11/23 07:16 Resp 16 03/11/23 07:16 BP 140/74 H 03/11/23 07:16 Pulse Ox 100 03/11/23 07:16 O2 Del Method Room Air 03/11/23 07:16 BMI result Body Mass Index 21.6 GENERAL APPEARANCE: in no acute distress. NECK: no carotid bruit, no jugular venous distention. SKIN: no suspicious lesions, warm and dry. HEART: no murmurs, regular rate and rhythm. LUNGS: clear to auscultation bilaterally. ABDOMEN: soft, nontender. EXTREMITIES: Left-sided amputation. PERIPHERAL PULSES: equal. NEUROLOGIC: No gross deficits, AAO X 3 Objective Labs and Meds 03/11/23 07:02 03/11/23 07:02 Lab results: Laboratory Results - last 24 hr 03/10/23 03/10/23 03/10/23 21:30 21:30 21:30 WBC 12.5 H RBC 4.28 D Hgb 13.3 D Hct 40.0 D MCV 93.5 MCH 31.1 MCHC 33.3 RDW 14.1 Plt Count 338 MPV 9.3 L Immature Gran % (Auto) 1.1 H Neut % (Auto) 64.1 Lymph % (Auto) 27.5 [place] % (Auto) 5.1 Eos % (Auto) 1.5 Baso % (Auto) 0.7 Lymph # (Auto) 3.4 [place] # (Auto) 0.6 Eos # (Auto) 0.2 Baso # (Auto) 0.1 Abs Immat Gran (auto) 0.14 H Absolute Neuts (auto) 8.0 Absolute Nucleated RBC 0.000 Nucleated RBC % (auto) 0.0 PT 11.2 INR 0.9 Sodium 138 Potassium 3.7 Chloride 103 Carbon Dioxide 25 Anion Gap 14 BUN 17 H Creatinine 0.80 Estim Creat Clear Calc 66.1 Estimated GFR > 60 POC Glucose Random Glucose 150 H Calcium 9.8 D Total Bilirubin 0.4 AST 15 ALT 7 Alkaline Phosphatase 88 Troponin I High Sens Total Protein 7.9 Albumin 4.1 Urine Color Urine Appearance Urine pH Ur Specific [place] Urine Protein Urine Glucose (UA) Urine Ketones Urine Blood Urine Nitrite Ur Leukocyte Esterase Urine RBC Urine WBC Ur Squamous Epith Cells Urine Bacteria Hyaline Casts Influenza Type A (PCR) Influenza Type B (PCR) RSV RNA Qual (PCR) SARS-CoV-2 RNA (RT-PCR) 03/10/23 03/10/23 03/10/23 21:30 23:37 23:37 WBC RBC Hgb Hct MCV MCH MCHC RDW Plt Count MPV Immature Gran % (Auto) Neut % (Auto) Lymph % (Auto) [place] % (Auto) Eos % (Auto) Baso % (Auto) Lymph # (Auto) [place] # (Auto) Eos # (Auto) Baso # (Auto) Abs Immat Gran (auto) Absolute Neuts (auto) Absolute Nucleated RBC Nucleated RBC % (auto) PT INR Sodium Potassium Chloride Carbon Dioxide Anion Gap BUN Creatinine Estim Creat Clear Calc Estimated GFR POC Glucose Random Glucose Calcium Total Bilirubin AST ALT Alkaline Phosphatase Troponin I High Sens < 2.7 18.3 H D Total Protein Albumin Urine Color Urine Appearance Urine pH Ur Specific [place] Urine Protein Urine Glucose (UA) Urine Ketones Urine Blood Urine Nitrite Ur Leukocyte Esterase Urine RBC Urine WBC Ur Squamous Epith Cells Urine Bacteria Hyaline Casts Influenza Type A (PCR) NEGATIVE Influenza Type B (PCR) NEGATIVE RSV RNA Qual (PCR) NEGATIVE SARS-CoV-2 RNA (RT-PCR) NEGATIVE 03/11/23 03/11/23 03/11/23 03:48 04:08 07:02 WBC 8.6 RBC 4.43 Hgb 13.7 Hct 41.4 MCV 93.5 MCH 30.9 MCHC 33.1 RDW 13.8 Plt Count 283 MPV 9.7 Immature Gran % (Auto) 1.0 H Neut % (Auto) 64.4 Lymph % (Auto) 27.3 [place] % (Auto) 5.7 Eos % (Auto) 0.9 Baso % (Auto) 0.7 Lymph # (Auto) 2.3 [place] # (Auto) 0.5 Eos # (Auto) 0.1 Baso # (Auto) 0.1 Abs Immat Gran (auto) 0.09 H Absolute Neuts (auto) 5.5 Absolute Nucleated RBC 0.000 Nucleated RBC % (auto) 0.0 PT INR Sodium Potassium Chloride Carbon Dioxide Anion Gap BUN Creatinine Estim Creat Clear Calc Estimated GFR POC Glucose 82 Random Glucose Calcium Total Bilirubin AST ALT Alkaline Phosphatase Troponin I High Sens Total Protein Albumin Urine Color Yellow Urine Appearance Clear Urine pH 5.5 Ur Specific [place] 1.015 Urine Protein Negative Urine Glucose (UA) Negative Urine Ketones Negative Urine Blood Negative Urine Nitrite Negative Ur Leukocyte Esterase Trace H Urine RBC 0-2 Urine WBC 0-5 Ur Squamous Epith Cells 0-2 Urine Bacteria None Seen Hyaline Casts 0-2 Influenza Type A (PCR) Influenza Type B (PCR) RSV RNA Qual (PCR) SARS-CoV-2 RNA (RT-PCR) 03/11/23 03/11/23 03/11/23 07:02 07:02 07:17 WBC RBC Hgb Hct MCV MCH MCHC RDW Plt Count MPV Immature Gran % (Auto) Neut % (Auto) Lymph % (Auto) [place] % (Auto) Eos % (Auto) Baso % (Auto) Lymph # (Auto) [place] # (Auto) Eos # (Auto) Baso # (Auto) Abs Immat Gran (auto) Absolute Neuts (auto) Absolute Nucleated RBC Nucleated RBC % (auto) PT INR Sodium 140 Potassium 4.6 D Chloride 107 Carbon Dioxide 27 Anion Gap 11 L BUN 18 H Creatinine 0.78 Estim Creat Clear Calc 67.8 Estimated GFR > 60 POC Glucose 83 Random Glucose 81 Calcium 9.9 Total Bilirubin AST ALT Alkaline Phosphatase Troponin I High Sens 171.9 H* D Total Protein Albumin Urine Color Urine Appearance Urine pH Ur Specific [place] Urine Protein Urine Glucose (UA) Urine Ketones Urine Blood Urine Nitrite Ur Leukocyte Esterase Urine RBC Urine WBC Ur Squamous Epith Cells Urine Bacteria Hyaline Casts Influenza Type A (PCR) Influenza Type B (PCR) RSV RNA Qual (PCR) SARS-CoV-2 RNA (RT-PCR) Imaging Radiologist's impression: Impressions Chest X-Ray 03/10/23 22:02 IMPRESSION: No acute abnormality of the chest. Assessment and Plan (1) Atypical chest pain: Status: Acute (2) Elevated troponin: Status: Acute Plan 57-year-old female who is status post bypass surgery and is presenting with chest pain. She chronically has atrial paced rhythm with precordial T-wave inversions. I reviewed her EKGs from January and these changes were present at that time too. She recently had retroperitoneal hematoma which was conservatively treated. So far she is feeling okay. I am increasing her Prilosec to b.i.d.. Resume the sotalol 80 mg p.o. b.i.d.. Monitor electrolytes closely. She has short run of nonsustained VT. I think her overall care is quite conservative due to multiple comorbidities. I would try to avoid heparin on her as much as possible given recent retroperitoneal hematoma. If she has recurrent chest discomfort then I will discuss the case with [facility] and transferred to [facility]. Thank you for allowing me to participate in the care of your patient. Please feel free to contact me if you have any questions. Time Spent With Patient Time: Total time managing care of this patient today ____ minutes. Procedures Date of Service Date of Service: 03/11/23
[2023-03-11 11:05] VITALS: BP 129/67; PULSE 60; RESP 18; TEMP 36.7; O2SAT 98
[2023-03-11 11:16] LABS: Glucose, Whole Blood 149 mg/dL (60-115)
[2023-03-11] MEDS: amLODIPine Besylate 5 MG TABLET PO (11:28)
[2023-03-11] MEDS: Isosorbide Mononitrate 60 MG TAB.ER.24H 120 MG PO (11:29)
[2023-03-11] MEDS: lisinopriL 20 MG TABLET PO (11:29)
[2023-03-11] MEDS: Cholecalciferol (Vitamin D3) 25 MCG TABLET PO (11:29)
--- NOTE | 2023-03-11 12:32 | PM.EVENT ---
Event Note Date of Service: 03/11/23 Event Note: This is a 57-year-old female with pertinent history of insulin-dependent diabetes mellitus, essential hypertension, coronary artery disease status post CABG, mood disorder who presents to the emergency department for evaluation of chest discomfort. Atypical chest discomfort with history of coronary artery disease Continue to monitor on telemetry Seen evaluated by Cardiology>rec hold off on IV heparin at this time due to history of recent retroperitoneal hematoma, if recurrent chest pain occurs will discuss with Cardiology Continue aspirin, statin and beta-arlyn Nonsustained V-tach, had a short run today Continue sotalol 80 mg b.i.d. Diabetes mellitus type 2 Sliding scale, ADA diet Hypertension Stable blood pressure Continue antihypertensives Mental health Continue home medications Med rec pending DVT prophylaxis: Alannah Attending Dr. Rocha Full code Time Spent With Patient Time: Total time managing care of this patient today ____ minutes.
--- NOTE | 2023-03-11 13:32 | MHC.CM.PN ---
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
[2023-03-11 15:25] VITALS: BP 120/56; PULSE 60; RESP 20; TEMP 36.4; O2SAT 96
[2023-03-11 15:50] LABS: Glucose, Whole Blood 122 mg/dL (60-115)
--- NOTE | 2023-03-11 16:57 | PC.NURSE ---
pt denied chest pain, vital signs stable. pt does not have order to transfer to [facility]. pt wante to go home/leave AMA. notified, came to see pt. AMA form completed.
--- NOTE | 2023-03-12 07:16 | P.DS_ITS ---
DS: Providers Provider Date of Service: 03/11/23 Date of admission: 03/11/23 01:05 Primary care physician: [facility] Consults: 03/11/23 01:48 Consult to Cardiology Routine Consulting Provider: [facility] Cardiovascular Services Reason for consultation: chest pain Has provider been notified: Yes DS: Diagnosis Discharge Diagnosis (1) Atypical chest pain: Status: Acute (2) Elevated troponin: Status: Acute DS: Summary Hospital Course Hospital Course: HP as per admitting provider. This is a 57-year-old female with pertinent history of insulin-dependent diabetes mellitus, essential hypertension, coronary artery disease status post CABG, mood disorder who presents to the emergency department for evaluation of chest discomfort.? Patient states it started around 18:00 when she was trying to get up from the bed.? It comes and goes and is without any exacerbating or relieving factors.? Patient does not ambulate at baseline.? She tried nitroglycerin at home but no relief.? It is midsternal in location, does not radiate and not associated with nausea or sweating.? No dyspnea.? No symptoms of gastroesophageal reflux disease.? She denies fever, c hills, palpitations, abdominal pain, changes in urinary or bowel habits. In the emergency department, cardiology was consulted who requested admission Atypical chest discomfort with history of coronary artery disease. with hx of CAD and Nstemi. no obvious acute ischemic signs on EKG. some st wave abnormalites and elevated troponin. Monitored on telemetry. had a short run of Vtach while inpatient. Seen evaluated by Cardiology, no IV heparin due to history of recent retroperitoneal hematoma, she was continued on aspirin, statin and beta-arlyn as well as sotalol BID. Plan was to monitor patient overnight but patient wanted to leave AMA. Diabetes mellitus type 2. continue home meds Hypertension Stable blood pressure continue antihypertensives Mental health Continue home medications Time Spent with Patient Time attestation: Total time managing care of this patient today ____ minutes. Discharge coordination time: Greater than 30 minutes Quality: Safe Use of Opioids Does Pt have an Active Cancer Diagnosis on the Problem List?: No Quality: Stroke Does the patient have a stroke diagnosis?: No Physical Exam Vital Signs: Vital Signs: Last Vital Signs Temp 97.5 F 03/11/23 15:25 Pulse 60 03/11/23 15:25 Resp 20 03/11/23 15:25 BP 120/56 L 03/11/23 15:25 Pulse Ox 96 03/11/23 15:25 O2 Del Method Room Air 03/11/23 15:25 BMI result Body Mass Index 21.6 Left AMA DS: Data Data Completed and Pending Labs on day of discharge: Laboratory Results - last 24 hr 03/11/23 03/11/23 03/11/23 07:02 07:02 07:17 Sodium 140 Potassium 4.6 D Chloride 107 Carbon Dioxide 27 Anion Gap 11 L BUN 18 H Creatinine 0.78 Estim Creat Clear Calc 67.8 Estimated GFR > 60 POC Glucose 83 Random Glucose 81 Calcium 9.9 Troponin I High Sens 171.9 H* D 03/11/23 03/11/23 11:09 15:46 Sodium Potassium Chloride Carbon Dioxide Anion Gap BUN Creatinine Estim Creat Clear Calc Estimated GFR POC Glucose 149 H 122 H Random Glucose Calcium Troponin I High Sens Discharge Plan Discharge Anticipated Discharge Date/Time: 03/11/23 17:32 Patient Disposition: Left Against Medical Advice Discharge Diagnosis: Atypical chest pain Referrals: [facility] [Primary Care Provider] - 1 Week Discharge Medications: No Action nitroglycerin 0.4 mg Tablet, Sublingual 0.4 mg SUBLINGUAL Q5M PRN (Reason: Angina) aspirin 81 mg Tablet 81 mg PO DAILY clopidogrel 75 mg Tablet 75 mg PO DAILY Qty: 1 0RF sotalol 80 mg tablet 80 mg PO BID isosorbide mononitrate 120 mg tablet extended release 24 hr 120 mg PO QAM oxycodone 5 mg tablet 5 mg PO Q12H PRN (Reason: severe pain) metformin 500 mg tablet 500 mg PO BID atorvastatin 80 mg tablet 80 mg PO QPM lisinopril 20 mg tablet 20 mg PO QPM quetiapine 100 mg tablet 100 - 200 mg PO BEDTIME bupropion HCl 200 mg tablet sustained-release 12 hr 200 mg PO BID carvedilol 12.5 mg tablet 12.5 mg PO BID amlodipine 5 mg tablet 5 mg PO QAM pantoprazole 20 mg tablet,delayed release (DR/EC) 20 mg PO QAM cholecalciferol (vitamin D3) [Vitamin D3] 25 mcg (1,000 unit) capsule 25 mcg PO QAM docusate sodium 100 mg capsule 100 mg PO BID Discharge Orders: Discharge Order (Routine); Ordered 03/11/23 Ordered By: Valentin Nelson Diet: Advance to usual diet Activity on Discharge: As tolerated Care Plan Goals: AMA Health Concerns: AMA Plan of Treatment: AMA Assessment: AMA Discharge Date/Time: 03/11/23 16:25
== END 2023-03-11 16:25 | disposition left against medical advice (07) ==
LOC: HO.ED 03-11 01:02 → HO.EDOVER 03-11 01:10 → HO.IMC 03-11 01:46
PROVIDERS: Admitting Provider Student in an Organized Health Care Education/Training Program; Emergency Provider Student in an Organized Health Care Education/Training Program; Visit Provider Nurse Practitioner Acute Care
DX: R07.89 Other chest pain (principal); I24.9 Acute ischemic heart disease, unspecified; I10 Essential (primary) hypertension; E11.9 Type 2 diabetes mellitus without complications; R77.8 Other specified abnormalities of plasma proteins; I25.2 Old myocardial infarction; I25.10 Atherosclerotic heart disease of native coronary artery without angina pectoris; Z95.0 Presence of cardiac pacemaker; Z79.4 Long term (current) use of insulin; Z20.828 Contact with and (suspected) exposure to other viral communicable diseases; Z95.1 Presence of aortocoronary bypass graft; Z89.512 Acquired absence of left leg below knee
CPT/HCPCS: 0241U; 36415; 71046; 80048; 80053; 81001; 82947; 84484; 85025; 85610; 93005; 96372; 99222; 99285; J1650

== ENCOUNTER → 2023-03-11 01:05 | Outpatient (BNV) | payer MEDICAID, SELFPAY | PROVIDERS: Admitting Provider Student in an Organized Health Care Education/Training Program; Emergency Provider Student in an Organized Health Care Education/Training Program; Visit Provider Internal Medicine Cardiovascular Disease | DX: R07.89 Other chest pain (principal); R77.8 Other specified abnormalities of plasma proteins | CPT/HCPCS: 99223 ==

== ENCOUNTER → 2023-03-11 01:05 | Outpatient (BNV) | payer MEDICAID, SELFPAY | PROVIDERS: Admitting Provider Student in an Organized Health Care Education/Training Program; Emergency Provider Student in an Organized Health Care Education/Training Program; Visit Provider Student in an Organized Health Care Education/Training Program | DX: R07.89 Other chest pain (principal) | CPT/HCPCS: 99222; 99239; 99499 ==